=== PATIENT | female | born 1930 | race Caucasian/White ===

== ENCOUNTER 2017-01-08 20:56 | Inpatient (IN) | payer MEDICARE, OTHER ==
[~2017-01-08] VITALS: Ht 165.1 cm; Wt 55.3 kg
[~2017-01-08 20:56] MED LIST: ACETAMINOPHEN1 EACH PO; ADVIL200 M1 PO; ANTACID200 MG PO; ANTI-DIARRHEA2 MG PO; ASPIRIN EC81 MG PO; BENADRYL25 MG PO; CARBIDOPA-LEVO1 EA10 PO; CARBIDOPA-LEVO1 EAC1 PO; CEPHALEXIN500 MG PO; CRANBERRY300 MG PO; CRANBERRY500 M1 PO; CYCLOBENZAPRINE10 MG PO; DAILY VALUE1 EACH PO; DAILY VITAMIN1 EAC2 PO; EAR DROPS15 ML AU; FERROUS SULFAT325 MG PO; FLEET ENEMA133 ML PR; IBUPROFEN800 MG PO; LIDOCAINE HCL30 ML TOP; MAG-AL LIQUID30 ML PO; MAPAP500 M1 PO; MI ACID SUSPEN355 ML PO; MIRALAX17 GM PO; NORCO 5-325 TA1 EACH PO; OMEPRAZOLE20 MG PO; PROMETHAZINE HC25 M1 PO; SENNA8.6 MG PO; SINEMET 25-1001 EACH PO; TRAMADOL HCL50 MG PO; TYLENOL PM EX-1 EACH PO; VITAMIN D31000 UNI1 PO; ZOFRAN4 MG PO
[2017-01-08] MEDS ORDERED: MEDI-DERM-L CR120 ML TOP (21:15)
[2017-01-08] MEDS ORDERED: MULTIVITAM9 MG/15 M1 PO (21:16)
--- NOTE | 2017-01-08 23:09 | EKG ---
[facility] [address] [facility] [place] [address] Signed Poor data quality, interpretation may be adversely affected Normal sinus rhythm Anterior infarct , age undetermined Abnormal ECG When compared with ECG of 04-JUL-2016 19:17, Anterior infarct is now present Non-specific change in ST segment in Anterior leads Confirmed by KATI FRANCOIS MD ([id number]) on 01/08/2017 11:09:20 PM Electronically Signed By: KATI FRANCOIS MD 01/08/17 2309 PATIENT NAME: ASHU ALONSO Electrocardiogram DATE OF : 32 PHYSICIAN: KATI FRANCOIS MD REPORT #: [id number] REPORT IS CONFIDENTIAL AND NOT TO BE RELEASED WITHOUT AUTHORIZATION
--- NOTE | 2017-01-09 01:24 | NUR ---
IN TO CHECK ON PT, PT SLEEPING IN CHAIR. RR EVEN AND UNLABORED. NO APPARENT DISTRESS NOTED. IVF INFUSING. CALL LIGHT IN REACH.
--- NOTE | 2017-01-09 02:20 | NUR ---
IN TO CHECK ON PT, PT IN BED. APPEARS TO BE SLEEPING. RR EVEN AND UNLABORED. CALL LIGHT IN REACH.
--- NOTE | 2017-01-09 04:01 | NUR ---
IN TO CHECK ON PT, PT APPEARS TO BE SLEEPING. RR EVEN AND UNLABORED. NO APPARENT DISTRESS NOTED. CALL LIGHT IN REACH.
--- NOTE | 2017-01-09 05:54 | NUR ---
PT ADMITED TO FLOOR AT 0035 FROM ER. PER ER NOTES PT IS BEDBOUND WITH THE EXCEPTION OF SHORT TRANSFERS. I & D OF AREA UNDER THE R BREAST DONE IN ER. DRSG C/D/I. REDNESS OF THE R LE NOTED. PT HAS GENERALIZED RASH ON ARMS AND TRUNK. SL EXCEPT FOR IV ABX. 20G NOTED IN THE R AND L WRIST. BP ELEVATED AND PULSE ELEVATED. PT IS ON RA.
--- NOTE | 2017-01-09 06:55 | NUR ---
BEDSIDE REPORT RECEIVED FROM PATRICK PATEL. PT AWAKE IN BED, TALKING. PT HAS RASH OVER MAJORITY OF BODY. SKIN GROSSLY INTACT OTHER THAN ABCESS ON BREAST, DRESSING HAS SMALL AMT OF DRIED SEROUS DRAINAGE. PT HAS CALL LIGHT, WILL CONTINUE TO MONITOR.
--- NOTE | 2017-01-09 08:25 | NUR ---
DR. FRANCOIS IN PT'S ROOM FOR ASSESSMENT. ORDERED CULTURE FOR ABSESS ON BREAST, CHANGED DRESSING, SWABBED ABSESS FOR CULTURE. CULTURE SENT TO LAB. PT ALERT AND ORIENTED X 3. PT STATES HARD OF HEARING. RASH IS COVERING MAJORITY OF BODY. SKIN IS GROSSLY INTACT. RN MELANIEENE WITH PT ASSISTING WITH EATING BREAKFAST.
--- NOTE | 2017-01-09 10:05 | NUR ---
PT MORNING ASSESSMENT COMPLETE. PT ALERT, ORIENTED X 3. PT STATING SOME PAIN IS PRESENT IN RIGHT LEG. LOWER LEG IS RED FROM CELLULITIS. PT HAS RASH COVERING BODY. IV SITES PATENT, FLUSH WELL, VANCOMYCIN INFUSING IN LEFT FOREARM. PT DENIES NAUSEA. NO DRAINAGE NOTED THROUGH GAUZE SINCE DRESSING CHANGE. AWILDA ISSA AND PATRICK COLLIER TO SHOWER PT THIS MORNING. WILL CONTINUE TO MONITOR.
--- NOTE | 2017-01-09 10:35 | NUR ---
PHONE CALL FROM PT'S SON ROBYN. UPDATED ON PT STATUS, PLAN OF CARE. SON SAID TO CALL IF ANY CHANGES, PHONE NUMBER ON PT'S BOARD.
--- NOTE | 2017-01-09 10:59 | NUR ---
KANA GAVE PATIENT SHOWER. NOW SITTING UP IN CHAIR. BED LINENS CHANGED.
--- NOTE | 2017-01-09 11:40 | NUR ---
PATIENT WAS ASSISTED TO SHOWER CHAIR. TENA AND THIS RN SHOWERED PATIENT. HYDROCORTISONE CREAM APPIED TO PATIENT BODY PER DR FRANCOIS ORDER. PATIENT ASSISTED BACK TO CHAIR, RESTING A THIS TIME. WARM BLANKET PROVIDED.
--- NOTE | 2017-01-09 12:33 | NUR ---
DR. KATZ IN PT'S ROOM FOR CONSULT, ASSESSED ABCESS ON RIGHT BREAST. STATING HARD LUMP FELT, MAY NEED ADDITIONAL DRAINAGE. PT UP IN CHAIR, CHAIR ALARM IN PLACE, NO ADDITIONAL REQUESTS AT THIS TIME. CALL LIGHT IN REACH. WILL CONTINUE TO MONITOR.
--- NOTE | 2017-01-09 12:58 | NUR ---
PATIENT ASSISTED TO BEDSIDE COMMODE WITH 2 PERS. PATIENT VOIDED. ASSISTED BACK TO CHAIR. PATIENT HAD NO REQUEST AT THIS TIME.
--- NOTE | 2017-01-09 13:05 | NUR ---
HEATING PAD APPLIED TO PT RIGHT BREAST PER MD REQUEST. PT UP IN CHAIR, CHAIR ALARM IN PLACE. PT GIVEN CHOCOLATE ENSURE TO DRINK. NO ADDITIONAL REQUESTS AT THIS TIME. WILL CONTINUE TO MONITOR. CALL LIGHT IS IN REACH, EDUCATION PROVIDED.
--- NOTE | 2017-01-09 14:40 | NUR ---
PT AFTERNOON ASSESSMENT COMPLETE. HYDROCORTISONE APPLIED ALL OVER PT BODY, PUSTULE NOTICED ON LEFT INNER ARM. PT STATES THAT RASH IS ITCHY. PT COMPLAINS OF PAIN WITH TOUCH OF RIGHT LEG. BOWEL TONES ACTIVE X 4. PT DENIES NAUSEA. ASSISTED PT TO EAT SOUP AND CRACKERS. CALL LIGHT IN REACH, WILL CONTINUE TO MONITOR PT. CHAIR ALARM IS IN PLACE.
[2017-01-09] MEDS ORDERED: CYCLOBENZAPRINE10 MG PO (15:03)
--- NOTE | 2017-01-09 15:04 | NUR ---
CHECKOUT SUPERVISOR NOW PRESENT IN PT ROOM.
[2017-01-09] MEDS ORDERED: VITAMIN D31000 UNI1 PO (15:14)
[2017-01-09] MEDS ORDERED: IBUPROFEN800 MG PO (15:15)
[2017-01-09] MEDS ORDERED: ACETAMINOPHEN1 EACH PO (15:16)
[2017-01-09] MEDS ORDERED: MIRALAX17 GM PO (15:17)
[2017-01-09] MEDS ORDERED: TRIAMCINOLONE A15 G1 TOP (15:18)
[2017-01-09] MEDS ORDERED: MAPAP500 M1 PO (15:19)
[2017-01-09] MEDS ORDERED: MAALOX ADVANCE355 ML PO (15:23)
[2017-01-09] MEDS ORDERED: LOPERAMIDE2 M1 PO (15:24)
[2017-01-09] MEDS ORDERED: PROMETHAZINE HC25 M1 PO (15:25)
[2017-01-09] MEDS ORDERED: CALAMINE180 ML TOP (15:25)
--- NOTE | 2017-01-09 15:26 | NUR ---
Medications reconciled by pharmacist using MARS from facility and patient interview
--- NOTE | 2017-01-09 15:59 | NUR ---
PATIENT REPORTED PAIN ON THE RIGHT BREAST AND RIGHT LEG. TYLENOL GIVEN. PATIENT RESTING IN THE CHAIR. RT WAS CALLED TO EVALUATE PATIENT BREATHING, BECAUSE PATIENT HAS SOME WHEEZING ON INSP AND EXP.
--- NOTE | 2017-01-09 16:34 | NUR ---
PATIENT ASSISTED TO BEDSIDE COMMODE TO VOID, THEN ASSISTED TO BED WITH 2 PERS. WARM PACK ON RIGHT BREAST AND WARM BLANKET PROVIDED. RESTING IN BED AT THIS TIME.
--- NOTE | 2017-01-09 17:00 | NUR ---
PT RESTING IN BED, STATING SHE'S COLD, BROUGHT PT WARM BLANKET. PT ALSO REQUESTING ROOT BEER. ASSISTED PT TO CHOOSE DINNER, ORDERED DINNER FOR PT. REPOSITIONED PT IN BED. CALL LIGHT GIVEN TO PT. WILL CONTINUE TO MONITOR.
--- NOTE | 2017-01-09 18:07 | NUR ---
ASSISTED PT WITH MEAL, FED PT DINNER. PT ATE 50% OF DINNER. ASSISTED PT TO BLOW NOSE. PT STATING RIGHT LEG IS HURTING. EXAMINED LEG, LEG IS MORE RED THAN PREVIOUSLY IN SHIFT. WILL CONTINUE TO MONITOR. ADDITIONAL HYDROCORTIZONE APPLIED.
--- NOTE | 2017-01-09 18:38 | NUR ---
PHONED DR. FRANCOIS REGARDING PT PAIN IN RIGHT LEG. VERBAL ORDER FOR 400 MG IBUPROFEN Q 6HR PRN PAIN. READ BACK.
--- NOTE | 2017-01-09 18:42 | NUR ---
PT COMPLAINED OF PAIN IN RIGHT LEG THROUGHOUT SHIFT, ITCHING RASH. HYDROCORTIZONE APPLIED X 2, PT HAD SHOWER THIS MORNING. PT UP TO COMMODE WITH 2PA WITH SOME INCONTINENCE IN ATTENDS. PT RECEIVED TYLENOL X1 AND IBUPROFEN X1 THIS SHIFT FOR PAIN. PT ASSISTED TO REPOSITION AND EAT THROUGHOUT SHIFT.
--- NOTE | 2017-01-09 19:09 | NUR ---
CALL MADE TO DR FRANCOIS TO UPDATE HIM ON PATIENT VITAL SIGNS (BP 164/81 AND MAP 93, TEMP 99.3-- RR 28 AND O2 SAT 98% ON RA) PATIENT WAS COMPLAINING OF PAIN IN THE RIGHT LEG AND RIGHT BREAST. PATIENT WAS MEDICATED WITH IBUPROFEN. DR FRANCOIS STATED TO KEEP MONITOR PATIENT. REPORT WILL BE GIVEN TO GEOLOGY PROFESSOR NURSE. PATIENT RESTING BED AT THIS TIME.
--- NOTE | 2017-01-09 19:50 | NUR ---
RECIEVED REPORT FROM DAY SHIFT NURSE. PT RESTING IN BED. RLE ELEVATED ON PILLOW. HYDRATION OFFERED. PT DENIES NEEDS. CALL PATEL IN REACH.
--- NOTE | 2017-01-09 20:41 | NUR ---
PT REPOSITIONED TO R SIDE. CHECKED FOR EPISODE OF INCONT., FOUND DRY. HYDROCORTISONE CREAM APPLIED TO RASH ON BUE, ABD, BACK, AND BLE. ASSISTED PT WITH MOUTH CARE. WARM PACK APPLIED TO R BREAST. DRESSING HAS DIME SIZE AMOUNT OF YELLOW DRAINAGE. AREA APPEARS RED WITH SMALL SLIT WHERE SITE WAS DRAINED. RLE ELEVATED ON 2 PILLOWS. NO C/O PAIN AT THIS TIME. PALPABLE PEDAL PULSES. PT ALERT AND ORIENTED X3. PT DENIES FURTHER NEEDS, CALL LIGHT IN REACH.
--- NOTE | 2017-01-09 22:40 | NUR ---
PT SLEEPING. CALL PATEL IN REACH.
--- NOTE | 2017-01-09 23:59 | NUR ---
REPOSITIONED PT ON L SIDE FROM SUPINE. RLE ELEVATED ON 2 PILLOWS. CHECKED FOR EPISODE OF INCONT., FOUND DRY. CALL PATEL IN REACH.
--- NOTE | 2017-01-10 00:01 | NUR ---
PAYROLL AND BENEFITS MANAGER REPOSITIONED PT AND CHANGED BRIEF AROUND 0.
--- NOTE | 2017-01-10 02:46 | NUR ---
PT UP TO BSC WITH 2 PERSON ASSIST. VOIDED. BACK TO BED. REPOSITIONED ON L SIDE. NO CHANGE FROM PREVIOUS ASSESSMENT. RLE ELEVATED ON 2 PILLOWS. WARM PACK APPLIED TO R BREAST. PT DENIES FURTHER NEEDS. CALL PATEL IN REACH.
--- NOTE | 2017-01-10 02:48 | NUR ---
NO C/O PAIN IN RLE EXCEPT WITH REPOSITIONING ON PILLOWS. LEG IS SENSITIVE TO TOUCH. PT HAVING NO ISSUES SLEEPING.
--- NOTE | 2017-01-10 04:34 | NUR ---
PT HAD UNEVENTFUL NIGHT. SLEPT MOST OF THE NIGHT. RLE ELEVATED ON 2 PILLOWS ALL NIGHT. UP TO BSC X1 LAST NIGHT, ALSO INCONT. VS STABLE. PT ALERT AND ORIENTED X3. PT REFUSED TYLENOL. STATES PAIN IS "NOT AT THAT LEVEL YET." NO ACUTE CHANGES.
--- NOTE | 2017-01-10 05:13 | NUR ---
REPOSITIONED PT TO R SIDE. CHECKED FOR EPISODE OF INCONT., FOUND DRY. TOILETING OFFERED. PT STATES HER PAIN IS BETTER. STATES, "I MUST BE GETTING BETTER, I DIDNT SCREAM WHEN YOU TOUCHED MY LEG." PT STATES SHE HAS NO PAIN IN HER R BREAST. RLE ELEVATED ON 2 PILLOWS, REDNESS HAS DIMINISHED. CALL PATEL IN REACH.
--- NOTE | 2017-01-10 07:15 | NUR ---
BEDSIDE REPORT RECEIVED FROM PATRICK VAUGHN. PT SLEEPING IN BED, VISBLY BREATHING, WILL CONTINUE TO MONITOR.
--- NOTE | 2017-01-10 08:38 | NUR ---
PT MORNING ASSESSMENT COMPLETE. PT STATING 6/10 PAIN IN RIGHT LEG, LEG IS RED, EDEMETOUS. ADMINISTERED 400 MG IBUPROFEN. CRACKLES NOTED IN LUNG BASES BILATERALLY. HYDROCORTISONE APPLIED TO RASH ALL OVER BODY. PT GIVEN FRESH ICE WATER, WARM BLANKET. IV VANCOMYCIN INFUSING. BOTH IV SITES PATENT, FLUSH WELL. CALL LIGHT WITH PT, WILL CONTINUE TO MONITOR. CHAIR ALARM IS IN PLACE.
--- NOTE | 2017-01-10 10:05 | NUR ---
SALINE LOCKED PT'S IV SITE, LINE PULLS BACK BLOOD WELL AND FLUSHES. ELEVATED LEG ON ANOTHER PILLOW, ASSISTED PT TO REPOSITION. PT HAS NO ADDITIONAL REQUESTS, CHAIR ALARM SET. CALL LIGHT IN REACH.
--- NOTE | 2017-01-10 10:22 | NUR ---
DR. FRANCOIS IN TO SEE PT. PT UP IN CHAIR, LEGS ELEVATED. CALL LIGHT IN REACH.
--- NOTE | 2017-01-10 11:16 | NUR ---
PT STATING SHE HAD SHARP PAIN IN RIGHT BREAST, AND RIGHT LEG IS PAINFUL, 5/10. ADMINISTERED ACETAMINOPHEN 500 MG PRN. PT HAS NO ADDITIONAL REQUESTS, CALL LIGHT IN REACH. LEGS ARE ELEVATED ON 3 PILLOWS IN CHAIR.
--- NOTE | 2017-01-10 11:45 | NUR ---
PATIENT IN CHAIR FOR LUNCH
--- NOTE | 2017-01-10 12:18 | NUR ---
Patient up sitting in chair, fed her lunch. She ate about 60 percent of it. And drank all of her cranberry juice. In good spirits, although she still is painful in her abdomen.
--- NOTE | 2017-01-10 13:40 | CONS ---
[facility] [address], [place] [address] Signed DATE OF CONSULTATION: 01/09/17 CONSULTING PHYSICIAN: Lorraine Katz M.D. REQUESTING PHYSICIAN: Dr. Lemus. PROBLEM: Right breast abscess, possible incomplete drainage. HISTORY OF PRESENT ILLNESS This 86-year-old white woman is known to me since 1993. She has had various tissues over time including arteriovenous malformation causing chronic anemia and other problems. She now resides in an assisted living facility. She was noted to have pain in the right leg and was admitted by Dr. Lemus with findings of cellulitis. Additionally, she had a mass of the right breast that looked inflamed and was incised and drained in the emergency room setting delivering purulent material. This was considered a right breast abscess. It is unclear when her last imaging study of the breast was. About 5 mL of purulent material was noted upon drainage. She has been admitted by Dr. Lemus and was placed on intravenous antibiotic Vancomycin for her right lower extremity cellulitis and bilateral pedal edema. Coverage of her right breast abscess is likely given the antibiotic choice He does have rather numerous allergies which include Streptomycin, Penicillins, latex as well as other things including pain medications of Demerol, Codeine, Propoxyphene, and OxyContin. She is afflicted significantly by Parkinson's disease. She was previously very active running the [employer] in the [facility], but obviously is very debilitated since prior to 2013 where she was admitted by Dr. Lemus for failure to thrive at that time. REVIEW OF SYSTEMS She denies any real pain of her breast or the leg at this time. She has no abdominal pain. She does recount episode of drainage of the left breast in some way at the assisted living facility. PHYSICAL EXAMINATION GENERAL: An extremely frail and fragile woman who has an impressive Parkinson's-like face and a tremor consistent with Parkinson's as well. HEENT: Trachea is midline. CHEST: She has no respiratory distress. HEART: Regular. SKIN: Various excoriations and bland seborrheic changes of her torso. The right christ ast shows the mass approximately 5 cm in size with an incision in it draining some purulent Electronically Signed By: LORRAINE KATZ MD 01/10/17 1340 PATIENT NAME: ASHU ALONSO CONSULTATION DATE OF : 32 PHYSICIAN: LORRAINE KATZ MD REPORT #: [id number] REPORT IS CONFIDENTIAL AND NOT TO BE RELEASED WITHOUT AUTHORIZATION [facility] [address], [place] [address] Signed material. The mass itself is not particularly erythematous but it is firm. The left breast shows no such similar lesion. Atrophy of the breast is overall noted. EXTREMITIES: Bilateral lower extremity edema. There is mild erythema of the medial aspect of the right leg, but no sign of cellulitis at this time. LABORATORY DATA Studies show white count of 11.1 yesterday, hematocrit 35.6 with platelets 175,000. Chem profile is essentially normal. Liver enzymes normal. Urinalysis is negative. ASSESSMENT The abscess of the right breast is somewhat unusual given her advanced age and obviously not with breast feeding. The possibility of malignancy is a strong consideration; however, unlikely that maybe. I would recommend since she has eaten today that she not be taken to operation for additional drainage or exploration, but rather an ultrasound gently be performed. A fluid collection there will ultimately be drained, but if this represents a solid mass, an excisional biopsy of the entire mass including the purulent component would be. In that situation, the wound will be left open and closed by delayed technique. We will recommend warm compresses to the breast on the right side in the meantime. Continued antibiotic therapy would be appropriate. MD MIRA Teran/Werner /[id number] cc: Ericka Lemus MD Electronically Signed By: LORRAINE KATZ MD 01/10/17 1340 PATIENT NAME: ASHU ALONSO CONSULTATION DATE OF : 32 PHYSICIAN: LORRAINE KATZ MD REPORT #: [id number] REPORT IS CONFIDENTIAL AND NOT TO BE RELEASED WITHOUT AUTHORIZATION
--- NOTE | 2017-01-10 15:34 | NUR ---
PT ASSESSMENT COMPLETE. PT COMPLAINING OF ITCHING, APPLIED HYDROCORTIZONE CREAM TO RASH ALL OVER BODY. PTS LUNGS SOUND CLEAR THROUGHOUT. PT HAS ACTIVE BOWEL TONES. PT HAD BM X2 TODAY. PT DENIES PAIN. RIGHT LEG IS ELEVATED ON THREE PILLOWS. HEAT PACK APPLIED TO RIGHT BREAST ABSESS. CALL LIGHT IN REACH.
--- NOTE | 2017-01-10 17:40 | NUR ---
ASSESSED PT'S PAIN, PT STATING NO PAIN, REFUSES PRN PAIN MEDICATIONS. APPLIED COMPRESSION SOCK TO RIGHT LEG. LEG IS ELEVATED, PT IN BED. NO ADDITIONAL REQUESTS AT THIS TIME, CALL LIGHT IN REACH. AWILDA VILLARREAL IN ROOM TO COMPLETE VITALS.
--- NOTE | 2017-01-10 18:42 | NUR ---
PT RECEIVED IBUPROFEN X 1 AND TYLENOL X 1 THIS SHIFT FOR PAIN IN RIGHT LEG. PT CONTINUES TO COMPLAIN OF ITCHING AND HYDROCORTIZONE APPLIED. COMPRESSION STOCKING APPLIED TO RIGHT LEG PER DR. FRANCOIS SUGGESTION DURING ASSESSMENT. PT CONTINUES TO HAVE HOT PACK APPLIED TO BREAST ABSESS. PT HAS USED CALL LIGHT APPROPRIATELY AND USED BEDSIDE COMMODE. 2 BMS THIS SHIFT. PT'S SON WAS IN TO SEE PT.
--- NOTE | 2017-01-10 19:30 | NUR ---
RECIEVED REPORT FROM DAY SHIFT NURSE. PT RESTING IN BED. C/O PRURITIS. HYDROCORTISONE CREAM ON JUN FOR TONIGHT. PT DENIES FURTHER NEEDS. CALL PATEL IN REACH.
--- NOTE | 2017-01-10 21:09 | NUR ---
ASSESSMENT COMPLETE. OFFERS NO COMPLAINTS OF. RECOGNIZED THIS NURSE. KNOWS WHERE SHE IS AND THE DATE. PT HAS RASH, RED OVER MOST OF THE UNDERNEATH RIGHT ARM, ARM PIT, LEFT ARM, BELLY, BACK LEGS. SAYS IT ITCHES. APPLIED HYDROCORTISONE CREAM APPLIED. REDDESS RIGHT LEG NOTED ON INNER CALF, AND ANKLE. RIGHT GREAT TOE WITH NON-OPENED "CORN" UNDER NEATH. PT WALKS BY SHUFFLING HER FEET THUS RUBS THIS AREA.
--- NOTE | 2017-01-10 23:12 | NUR ---
PT WITH EVEN AND UNLABORED RESP @ 16. EYES CLOSED.
--- NOTE | 2017-01-11 01:25 | NUR ---
PT USED CALL LIGHT FOR NEED TO USE THE COMMODE. WAS INCONT SMALL AMOUNT URINE, AND VOIDED WELL. THIS IS PER HER NORMAL ROUTINE AT [facility]. BREAST WOUND SITE, RIGHT, WITHOUT DRAINAGE, FAINT PINKNESS NEAR THE OPERATIVE SITE. SCAB COVERING WOUND. GAUZE DRESSING COVERING. RIGHT LEG REMAINS UNCHANGED WITH THE MAJORITY OF REDNESS NEAR HER ANKLE AREA. COMPLAINS OF DISCOMFORT WHEN LEG LIFTED TO PUT ON PILLOW. ONCE LEGS ELEVATED ON PILLOWS, PAIN GOES AWAY. OSMIN HOSE ON RIGHT LEG CONTINUES. CALL LIGHT WITHIN REACH. REQUESTED TV BE SHUT OFF, WELL LIGHTS.
--- NOTE | 2017-01-11 03:15 | NUR ---
LAYING ON RIGHT SIDE WITH PILLOW SUPPORT. OFFERS NO COMPLAINTS. CALL LIGHT WITHIN REACH.
--- NOTE | 2017-01-11 05:11 | NUR ---
UP TO BATHROOM AFTER SHE USED CALL LIGHT, ASSIST OF TWO. USED CONTACT PRECAUTIONS RASH LOOKS SUSPICIOUS OF SCABIES. PT STATES RASH ITCHES BAD, ESPECIALLY UNDER ARM PITS. NOTES DRY SCALEYNESS BETWEEN WEBS OF FINGERS. CALL LIGHT WITHIN REACH. PT OFFERS NO COMPLAINTS. WATER GIVEN.
--- NOTE | 2017-01-11 08:02 | NUR ---
pt up in chair, c/opain leg and breast area, medicated with motrin 400mg po. Skin still red, itchy, generalized raised areas all over her body. 2 sl intact. Coop with assessment
--- NOTE | 2017-01-11 09:38 | NUR ---
Up to bsc, voided, had small bm, hydrocortisone cream applied to all over body, raised red areas. Back to bed, 2 person assist, attens in place. relief stated from pain med given earlier, further c/o pain,
--- NOTE | 2017-01-11 10:46 | NUR ---
Pt up in bed, no c/o adverse side effects to abx. Visiting with family. Comfortable
--- NOTE | 2017-01-11 12:24 | NUR ---
Pt ate 75% of lunch, is a feeder due to extreme hand tremors. Tolerated well. Pt up in chair, no c/o pain at this time. watchng tv
--- NOTE | 2017-01-11 17:17 | NUR ---
Pt up in chair most of the shift, Matthew justine R leg due to ankle edema,legs elevated. Lotion applied to all over body for red raised, scabbed over rash all over body, backs, arms, hips, legs. Hydrocortisone lotion applied twice Received Solumedrol 40mg IVx1. Received abx IV, SL intact x2. Pt ate 75% meals, reg diet, cut meats, is a feeder but is able to grab and drink juices w/o problems. Pt has unintentional hand tremors. Up to bs several times, Pt able to pivot, requires 2 person assist and FWW. Medicated with Motrin 400mg per c/o all over pain, effective. Pt cooperative with assessments and procedures. Awake all of this shift. Has visited with Family, no other requests
--- NOTE | 2017-01-11 17:56 | NUR ---
Noted pt to have increased exp wheezing left upper lobes, right clear t/o. no resp distress, Dr Williamson notified via phone about change in conditionn.o. to start neb tx albuterol q4h / prn obtained.
--- NOTE | 2017-01-11 19:45 | NUR ---
RECIEVED REPORT FROM DAY SHIFT NURSE. PT RESTING IN BED. DENIES NEEDS AT THIS TIME. CALL PATEL IN REACH.
--- NOTE | 2017-01-11 20:18 | NUR ---
PT RESTING IN BED. VS OBTAINED. REPOSITIONED TO L SIDE. CHECKED FOR EPISODE OF INCONT., FOUND DRY. APPLIED STEROID CREAM TO RASH. ENCOURAGED PT TO USE CALL LIGHT WHEN SHE BECOMES ITCHY SO I MAY APPLY REGULAR LOTION TO KEEP SKIN MOIST. LUNGS CLEAR, HR REG. RLE RED AND WARM, ELEVATED ON 2 PILLOWS. PEDAL PULSES STRONG AND PALPABLE. PT DENIES PAIN. DRESSING TO R BREAST C/D/I. TOILETING AND HYDRATION OFFERED. PT DENIES FURTHER NEEDS.
--- NOTE | 2017-01-11 22:45 | NUR ---
PT SLEEPING. CALL PATEL IN REACH.
--- NOTE | 2017-01-11 23:45 | NUR ---
PT UP TO BSC WITH 2 PERSON ASSIST. VOIDED. BACK TO BED. REPOSITIONED TO R SIDE, PT STATES SHE IS NOT COMFORTABLE ON THAT SIDE. PT SUPINE WITH BLE ELEVATED ON 2 PILLOWS. CALL PATEL IN REACH.
--- NOTE | 2017-01-12 00:11 | NUR ---
PT USED CALL LIGHT AND ASKED FOR SOMETHING TO RELIEVE HER ITCHING. APPLIED REGULAR LOTION. PT STATES SHE THINKS IT IS STARTING TO HELP THE ITCH. WATER PITCHER FILLED. HYDRATION OFFERED. PT DENIES FURTHER NEEDS. CALL PATEL IN REACH.
--- NOTE | 2017-01-12 01:18 | NUR ---
PT AWAKE IN BED. RATES HER "DISCOMFORT" IN HER RLE 09/13. PT REQUESTS MOTRIN. SNACK DELIVERED. HYDRATION OFFERED. REFILLED WATER PITCHER. PT DENIES FURTHER NEEDS.
--- NOTE | 2017-01-12 03:30 | NUR ---
PT AWAKE IN BED. REQUESTED LOTION TO BE PUT ON HER ARMS FOR ITCHING. APPLIED LOTION. SHE IMMEDIATELY SAID "IT FELT BETTER." REPOSITIONED TO R SIDE. RLE ELEVATED ON 2 PILLOWS. OSMIN STOCKING APPLIED TO RLE. HYDRATION AND TOIETING OFFERED. PT DENIES FURTHER NEEDS. CALL PATEL IN REACH. NO C/O PAIN.
--- NOTE | 2017-01-12 05:48 | NUR ---
PT DID NOT SLEEP VERY WELL TONIGHT. LOTION APPLIED MULTIPLE TIMES FOR ITCHING. PT UP TO BSC A FEW TIMES, NO INCONTINENCE. PT STATES PAIN IN RLE IS BETTER. NO PAIN IN R BREAST. MOTRIN GIVEN X1 LAST NIGHT FOR MINIMAL PAIN IN R LEG, PT ALSO STATES MORTIN HELPS WITH HER TREMORS. OSMIN STOCKING ON RLE. 2 IVS IN HANDS BOTH PATENT. PT ALERT AND ORIENTED. NO ACUTE CHANGES.
--- NOTE | 2017-01-12 07:25 | NUR ---
PT IN BED RESTING QUIETLY. RECIEVED BEDSIDE REPORT FROM PATRICK VAUGHN.
--- NOTE | 2017-01-12 08:15 | NUR ---
PT UP ON BEDSIDE COMMODE. TRANSFERED WITH ASSISTANCE FROM 2 CNAs USING FWW.
--- NOTE | 2017-01-12 08:50 | NUR ---
PT TRANSFERED FROM BEDSIDE COMMODE TO RECLINER, IS CURRENTLY EATING BREAKFAST WITH ASSISTANCE FROM [employer]. PT ALERT, ORIENTED X 3.
--- NOTE | 2017-01-12 08:55 | NUR ---
ASSISTED PATIENT WITH BREAKFAST. HANDS AND FACE WASHED. FRESH ICE WATER GIVEN. CALL BUTTON IN REACH. CHAIR ALARM ON. NO OTHER NEEDS AT THIS TIME. TALKED TO PATIENT ABOUT A SHOWER TODAY.
--- NOTE | 2017-01-12 10:18 | NUR ---
Vancomycin trough level = subtherapeutic at 9.2. Reload with 1250mg x 1 then give 1g IV q 18 hrs, next dose due 01/13/17 at 0300
--- NOTE | 2017-01-12 10:22 | NUR ---
PATIENT SITTING UP IN CHAIR WITH FEET ELEVATED. PATIENT STATES THAT SHE HAD A LADY COME IN AND TELL HER THAT SHE WASN'T GOING TO BEABLE TO GO BACK TO WERE SHE IS LIVING. PATIENT TEARY EYED. ASSITED WITH ORAL CARE. TALKED TO PATIENT ABOUT SHOWERING LATER TODAY. CALL BUTTON IN REACH. NO OTHER NEEDS AT THIS TIME.
--- NOTE | 2017-01-12 10:30 | NUR ---
SPOKE WITH PATIENT IN ROOM. PATIENT MARY'S IGLOO BUT ORIENTED. DISCUSSED POSSIBLE DICHARGE NEEDS. PT TEARY WITH TALK REGARDING SNF. PATIENT WANTS TO RETURN HOME TO [facility]. EXPLAINED THAT WILL BE OUR FIRST CHOICE. PATIENT STATES SHE NORMALLY USES A [facility] TO AMBULATE ONCE A DAY, OTHERWISE IS WHEELCHAIR BOUND.
--- NOTE | 2017-01-12 10:32 | NUR ---
PT IN BED, DENIES NEEDS. IVF INFUSING. PT REMAINS NPO.
--- NOTE | 2017-01-12 10:45 | NUR ---
SPOKE WITH HIEN, WEB DAT[employer] DEVELOPER OF [facility]. SHE STATES PATIENT IS OK TO RETURN THERE. SHE STATES PATIENT IS BASELINE IN HER NEEDS AT THIS POINT. SHE STATES THEY HAVE NO TRANSPORTATION OPTIONS TODAY AND PATIENT WILL NEED A RIDE OUT THERE. DISCUSSED WITH STAFF TO CALL PATIENTS SON AND SEE IF HE CAN TAKE HER, IF NOT TO CALL [facility] FOR CARE RIDE TO FACILITY. ALSO TOLD THEM TO CALL THE FACILITY ON ETA AND GIVE REPORT.
[2017-01-12] MEDS ORDERED: LEVOFLOXACIN500 MG PO (10:59)
--- NOTE | 2017-01-12 11:00 | NUR ---
PT SITTING UP IN RECLINER. GAVE PT LEVAQUIN 500 MG PO ORDERED. PT ABLE TO HOLD CUP, GIVE SELF DRINK OF WATER DESPITE HER TREMORS. PT ALERT, ORIENTED X 3.
--- NOTE | 2017-01-12 11:10 | NUR ---
PATIENT UP TO BSC AND BACK TO CHAIR. CHAIR ALARM ON. CALL BUTTON IN REACH. NO OTHER NEEDS AT THIS TIME. LUNCH ORDERED.
--- NOTE | 2017-01-12 13:00 | NUR ---
PATIENTS SON IS NOT ABLE TO TRANSPORT PATIENT TO FACILITY. STAFF WILL CALL A [facility] FOR TRANSPORT.
--- NOTE | 2017-01-12 13:00 | NUR ---
BED BATH COMPLETE. SEBASTIAN CARE DONE. PATIENT BEING DISCHARGED.
--- NOTE | 2017-01-12 13:12 | NUR ---
PT DISCHARGED TO HOME, [facility]IA [facility]. DISCHARGED AT 1310. DISCHARGE INSTRUCTIONS GIVEN TO PT. QUESTIONS ASKED AND ANSWERED, PT VERBALIZED UNDERSTANDING. PT'S BP WAS 144/82 JUST PRIOR TO DISCHARGE. NOTIFIED DR. ALVARADO, WHO STATED THAT SHE WAS OK WITH THIS.
== END 2017-01-12 13:10 | disposition home or self-care (01) | DRG 600 ==
LOC: ED 20:56 → MS 20:57
PROVIDERS: ADMIT Internal Medicine
PROC: 0H95XZX Drainage of Chest Skin, External Approach, Diagnostic (ICD-10-PCS; principal; 2017-01-08)
DX: N61.1 Abscess of the breast and nipple (principal); L03.115 Cellulitis of right lower limb; B95.8 Unspecified staphylococcus as the cause of diseases classified elsewhere; L30.8 Other specified dermatitis; G20 Parkinson's disease; Z66 Do not resuscitate; I10 Essential (primary) hypertension; K21.9 Gastro-esophageal reflux disease without esophagitis; I25.10 Atherosclerotic heart disease of native coronary artery without angina pectoris
CPT/HCPCS: 36415; 71010; 73610; 76642; 80048; 80053; 80202; 81001; 83605; 85025; 87040; 87070; 87075; 87077; 87186; 87205; 93005; 93010; 93971; 94760; 97110; 97161; 97530; J1650; J2920; J3370; J7060

== ENCOUNTER 2017-01-15 05:26 | Emergency (ER) | payer MEDICARE, OTHER ==
[~2017-01-15] VITALS: Ht 165.1 cm; Wt 55.3 kg
[~2017-01-15 05:26] MED LIST changes: +CALAMINE180 ML TOP; +LEVOFLOXACIN500 MG PO; +LOPERAMIDE2 M1 PO; +MAALOX ADVANCE355 ML PO; +MEDI-DERM-L CR120 ML TOP; +MULTIVITAM9 MG/15 M1 PO; +TRIAMCINOLONE A15 G1 TOP
== END 2017-01-15 06:29 | disposition home or self-care (01) ==
LOC: ED 05:26
DX: L03.115 Cellulitis of right lower limb (principal); I10 Essential (primary) hypertension; K21.9 Gastro-esophageal reflux disease without esophagitis; Z90.49 Acquired absence of other specified parts of digestive tract; Z90.710 Acquired absence of both cervix and uterus; Z88.8 Allergy status to other drugs, medicaments and biological substances; Z88.5 Allergy status to narcotic agent; Z88.0 Allergy status to penicillin; Z88.1 Allergy status to other antibiotic agents; Z79.899 Other long term (current) drug therapy; Z91.040 Latex allergy status
CPT/HCPCS: 99283

== ENCOUNTER 2017-04-01 16:51 | Emergency (ER) | payer MEDICARE, OTHER ==
[~2017-04-01] VITALS: Ht 165.1 cm; Wt 47.6 kg
[2017-04-01] MEDS ORDERED: CLEARLAX119 GM PO (17:19)
[2017-04-01] MEDS ORDERED: ENSURE LIQUID237 ML PO (17:20)
[2017-04-01] MEDS ORDERED: HYDROXYZINE HCL25 MG PO (17:25)
[2017-04-01] MEDS ORDERED: PROMETHAZINE HC25 M1 PO (17:26)
[2017-04-01] MEDS ORDERED: ZOFRAN ODT4 MG PO (17:26)
== END 2017-04-01 17:58 | disposition home or self-care (01) ==
LOC: ED 16:51
DX: R05 Cough (principal); I10 Essential (primary) hypertension; K21.9 Gastro-esophageal reflux disease without esophagitis; G20 Parkinson's disease; Z88.5 Allergy status to narcotic agent; Z88.1 Allergy status to other antibiotic agents; Z88.8 Allergy status to other drugs, medicaments and biological substances; Z91.040 Latex allergy status; Z88.0 Allergy status to penicillin; Z79.82 Long term (current) use of aspirin; Z79.899 Other long term (current) drug therapy
CPT/HCPCS: 71010; 80048; 85025; 99283

== ENCOUNTER 2017-05-05 15:59 | Emergency (ER) | payer MEDICARE, OTHER ==
[~2017-05-05] VITALS: Ht 165.1 cm; Wt 47.6 kg
[~2017-05-05 15:59] MED LIST changes: +CLEARLAX119 GM PO; +ENSURE LIQUID237 ML PO; +HYDROXYZINE HCL25 MG PO; +ZOFRAN ODT4 MG PO
[2017-05-05] MEDS ORDERED: ZOFRAN4 MG PO (19:59)
== END 2017-05-05 20:29 | disposition home or self-care (01) ==
LOC: ED 15:59
DX: J11.1 Influenza due to unidentified influenza virus with other respiratory manifestations (principal); I10 Essential (primary) hypertension; Z88.5 Allergy status to narcotic agent; Z88.8 Allergy status to other drugs, medicaments and biological substances; Z88.1 Allergy status to other antibiotic agents; Z88.0 Allergy status to penicillin; Z91.040 Latex allergy status; Z79.82 Long term (current) use of aspirin; Z79.899 Other long term (current) drug therapy
CPT/HCPCS: 71045; 87502; 99284

== ENCOUNTER 2017-07-04 14:23 | Emergency (ER) | payer MEDICARE, OTHER ==
[~2017-07-04] VITALS: Ht 165.1 cm; Wt 47.6 kg
== END 2017-07-04 17:28 | disposition home or self-care (01) ==
LOC: ED 14:23
PROC: 0HQKXZZ Repair Right Lower Leg Skin, External Approach (ICD-10-PCS; principal; 2017-07-04)
DX: S81.811A Laceration without foreign body, right lower leg, initial encounter (principal); I10 Essential (primary) hypertension; K21.9 Gastro-esophageal reflux disease without esophagitis; D64.9 Anemia, unspecified; Z88.5 Allergy status to narcotic agent; Z88.8 Allergy status to other drugs, medicaments and biological substances; Z88.0 Allergy status to penicillin; Z91.040 Latex allergy status; Z79.899 Other long term (current) drug therapy; Z79.82 Long term (current) use of aspirin; W54.1XXA Struck by dog, initial encounter
CPT/HCPCS: 12002; 99282

== ENCOUNTER 2018-04-09 17:04 | Emergency (ER) | payer MEDICARE, OTHER ==
[~2018-04-09] VITALS: Ht 165.1 cm; Wt 47.6 kg
--- OUTSIDE RECORDS SUMMARY | 2018-04-09 17:10 | XMS ---
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 Care History Medical/Surgical 05/21/2017 [facility] Care Recommendation: This patient has had 5 or more Emergency Department visits in the last 12 months. Patient requires education on the scope and purpose of the ED as an acute care provider not a Primary Care Provider and should not be utilized for chronic conditions. If patient returns to ED please contact Community Health WorkerYulissa at [phone]. These are guidelines and the provider should exercise clinical judgment when providing care. E.D. VISIT COUNT (12 MO[address] 4 [facility] TOTAL 4 NOTE: Visits indicate total known visits. ED/UCC VISIT TRACKING (12 MO.) 04/09/2018 17:05 [facility] [place] TYPE: Emergency COMPLAINT: - URINE PROBLEM 03/11/2018 15:10 [facility] [place] TYPE: Emergency COMPLAINT: - SOB DIAGNOSES: - Latex allergy status - Other intermediate (current) drug therapy - Allergy status to other antibiotic agents status - Cough - Allergy status to penicillin - Allergy status to other drugs, medicaments and biological substances status - Anemia, unspecified - Acute upper respiratory infection, unspecified - Essential (primary) hypertension - Personal history of urinary (tract) infections - Chronic ischemic heart disease, unspecified - Allergy status to narcotic agent status - Parkinson's disease - computer terminal operator (current) use of aspirin - Gastro-esophageal reflux disease without esophagitis 07/04/2017 14:24 [facility] [place] TYPE: Emergency COMPLAINT: - SKIN TEAR R CHESTER/INJURY DIAGNOSES: - Allergy status to other drugs, medicaments and biological substances status - correction (current) use of aspirin - Laceration without foreign body, right lower leg, initial encounter - Allergy status to penicillin - Essential (primary) hypertension - Anemia, unspecified - Gastro-esophageal reflux disease without esophagitis - Allergy status to narcotic agent status - Latex allergy status - Struck by dog, initial encounter - Other intermediate (current) drug therapy 05/05/2017 15:59 [facility] [place] TYPE: Emergency COMPLAINT: - FLU SYMPTOMS/SOB DIAGNOSES: - Other ad terminal makeup operator (current) drug therapy - computer terminal operator (current) use of aspirin - Cough - Allergy status to other antibiotic agents status - Allergy status to penicillin - Allergy status to other drugs, medicaments and biological substances status - Influenza due to unidentified influenza virus with other respiratory manifestations - Allergy status to narcotic agent status - Essential (primary) hypertension - Latex allergy status INPATIENT VISIT TRACKING (12 MO.) No inpatient visits to display in this time frame [email or web address]
--- NOTE | 2018-04-10 21:57 | CONS ---
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 HISTORY OF PRESENT ILLNESS: This 87-year-old white woman is well-known to me from the past. She is now very debilitated with Parkinson disease and now is at [facility]. She was brought to the emergency room by personnel at the senior living for concern about possible urinary tract infection. Her evaluation in the emergency room showed urinalysis was normal without sign of urinary tract infection. She had 5 white cells per high-power field. Her Chem profile that was obtained was essentially normal with a creatinine of 0.68. Liver enzymes normal, lipase 44. CBC showing white count of 5.2 with hematocrit 38.8 and platelet count of 127,000. The patient has had no nausea or vomiting and was able to eat a full breakfast today. She did not desire to eat much at lunch and this caused concern among her caretakers at the senior living. Evaluation by Dr. Brumfield included abdominopelvic CT scan which showed essentially all the stomach in the posterior mediastinum and generous amount of transverse colon as well. Concern was raised for that entity and that is the basis of consultation at this time. The patient is lucid and although slow in her speech and tremulous due to her Parkinson disease, complains of no pain whatsoever. She says no distress particularly. She is accompanied by family members. her son and daughter in law. REVIEW OF SYSTEMS: She denies any dysphagia. She has had no hematemesis or nausea or vomiting of any sort. She does not have abdominal pain she says. PHYSICAL EXAMINATION: GENERAL: A frail elderly white woman who is lucid, but slow in speech. She has a profound tremor of her upper extremities related to Parkinson disease. CHEST: Shows no tachypnea. Heart rate is about 127. ABDOMEN: Abdominal palpation reveals no tenderness whatsoever. There is no ascites. EXT: no edema and non tender. CT scan was reviewed in detail, confirming findings as I have described. ASSESSMENT AND PLAN: Electronically Signed By: LORRAINE KATZ MD 04/10/18 2157 PATIENT NAME: ASHU ALONSO CONSULTATION DATE OF : 32 REPORT #: [id number] PHYSICIAN: LORRAINE KATZ MD PCP: BUZZ CASTILLO MD REPORT IS CONFIDENTIAL AND NOT TO BE RELEASED WITHOUT AUTHORIZATION [address] [address] Signed I reviewed her prior imaging studies which have confirmed the current findings of the CT scan many times previously. Her primary physician is Dr. Buzz Castillo and I suspect given her overall debility that a decision had been made in the past against operative intervention of the problem of paraesophageal hernia. Indeed, I reviewed an operative report of upper endoscopy that I had performed in 2008 that showed a paraesophageal hernia then. I explained to the family and to the patient with illustrations, the anatomy that is present. Certainly, if she were to be showing signs of gastric ischemia, colonic obstruction, or have nausea, vomiting, or inability to tolerate oral intake, consideration would strongly be made for repair of this type 4 paraesophageal hernia. On the other hand, her frailty and impressively debilitated medical state would mitigate against aggressive operative intervention electively, particularly as she is asymptomatic at this time and with very significant comorbidities making her an unlikely operative candidate except in extreme circumstances. I believe she is safe to return to the senior living environment, but if she were to have inability to tolerate oral intake or develop abdominal pain or anything to suggest vascular compromise of the stomach or colon, further consideration of operative intervention would be made. Essentially, the findings at hand have been longstanding and my review of record shows as far back as 10 years ago in 2008, upper endoscopy had been performed by me confirming paraesophageal even at that time. Her family is disinclined to aggressive operative intervention nor is a patient too interested in it as well unless of dire necessity. We will review this with Dr. Brumfield. I will discuss with Dr. Castillo, her primary physician next week as well. Lorraine Katz MD /MODL /[id number] cc: Dee Brumfield MD Electronically Signed By: LORRAINE KATZ MD 04/10/18 2157 PATIENT NAME: ASHU ALONSO CONSULTATION DATE OF : 31 REPORT #: [id number] PHYSICIAN: LORRAINE KATZ MD PCP: BUZZ CASTILLO MD REPORT IS CONFIDENTIAL AND NOT TO BE RELEASED WITHOUT AUTHORIZATION [address] [address] Signed Buzz Castillo MD Copies: DEE BRUMFIELD MD, RUSSELL BARR MD ~ Electronically Signed By: LORRAINE KATZ MD 04/10/18 2157 PATIENT NAME: ASHU ALONSO CONSULTATION DATE OF : 31 REPORT #: [id number] PHYSICIAN: LORRAINE KATZ MD PCP: BUZZ CASTILLO MD REPORT IS CONFIDENTIAL AND NOT TO BE RELEASED WITHOUT AUTHORIZATION
== END 2018-04-09 23:37 | disposition home or self-care (01) ==
LOC: ED 17:04
PROC: 0T9B70Z Drainage of Bladder with Drainage Device, Via Natural or Artificial Opening (ICD-10-PCS; principal; 2018-04-09)
DX: R10.9 Unspecified abdominal pain (principal); G20 Parkinson's disease; D64.9 Anemia, unspecified; I10 Essential (primary) hypertension; K21.9 Gastro-esophageal reflux disease without esophagitis; I25.9 Chronic ischemic heart disease, unspecified; Z87.440 Personal history of urinary (tract) infections; Z90.49 Acquired absence of other specified parts of digestive tract; Z90.710 Acquired absence of both cervix and uterus; Z88.5 Allergy status to narcotic agent; Z88.0 Allergy status to penicillin; Z88.1 Allergy status to other antibiotic agents; Z91.040 Latex allergy status; Z88.8 Allergy status to other drugs, medicaments and biological substances; Z79.899 Other long term (current) drug therapy; Z79.82 Long term (current) use of aspirin
CPT/HCPCS: 51701; 74176; 80053; 81001; 83690; 85025; 99284-25

== ENCOUNTER 2018-05-05 11:25 | Emergency (ER) | payer MEDICARE, OTHER ==
[~2018-05-05] VITALS: Ht 165.1 cm; Wt 47.6 kg
--- OUTSIDE RECORDS SUMMARY | 2018-05-05 11:28 | XMS ---
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 Care History Medical/Surgical 05/21/2017 [facility] Care Recommendation: This patient has had 5 or more Emergency Department visits in the last 12 months. Patient requires education on the scope and purpose of the ED as an acute care provider not a Primary Care Provider and should not be utilized for chronic conditions. If patient returns to ED please contact Community Health WorkerYulissa at [phone]. These are guidelines and the provider should exercise clinical judgment when providing care. E.D. VISIT COUNT (12 MO.) 5 [facility] TOTAL 5 NOTE: Visits indicate total known visits. ED/UCC VISIT TRACKING (12 MO.) 05/05/2018 11:25 [facility] [place] TYPE: Emergency COMPLAINT: - URINE PROBLEM 04/09/2018 17:05 [facility] [place] TYPE: Emergency COMPLAINT: - ABD PAIN DIAGNOSES: - Allergy status to other antibiotic agents status - Latex allergy status - Acquired absence of other specified parts of digestive tract - Allergy status to penicillin - Chronic ischemic heart disease, unspecified - Allergy status to narcotic agent status - Parkinson's disease - Other fpc (current) drug therapy - Personal history of urinary (tract) infections - Acquired absence of both cervix and uterus - Essential (primary) hypertension - Anemia, unspecified - Allergy status to other drugs, medicaments and biological substances status - Unspecified abdominal pain - Gastro-esophageal reflux disease without esophagitis - emt intermediate (current) use of aspirin 03/11/2018 15:10 [facility] [place] TYPE: Emergency COMPLAINT: - SOB DIAGNOSES: - Latex allergy status - Other director long term care (current) drug therapy - Allergy status to [...] narcotic agent status - Parkinson's disease - shelter (current) use of aspirin - Gastro-esophageal reflux disease without esophagitis 07/04/2017 14:24 [facility] [place] TYPE: Emergency COMPLAINT: - SKIN TEAR R CHESTER/INJURY DIAGNOSES: - Allergy status to other drugs, medicaments and biological substances status - shelter (current) use of aspirin - Laceration without foreign body, right lower leg, initial encounter - Allergy status to penicillin - Essential (primary) hypertension - Anemia, unspecified - Gastro-esophageal reflux disease without esophagitis - Allergy status to narcotic agent status - Latex allergy status - Struck by dog, initial encounter - Other director long term care (current) drug therapy 05/05/2017 15:[address] [facility] [place] TYPE: Emergency COMPLAINT: - FLU SYMPTOMS/SOB DIAGNOSES: - Other director long term care (current) drug therapy - emt intermediate (current) use of aspirin - Cough - [...] visits to display in this time frame [email or web address]
[2018-05-05] MEDS ORDERED: KEFLEX500 MG PO (13:51)
== END 2018-05-05 14:06 | disposition home or self-care (01) ==
LOC: ED 11:25
DX: R30.0 Dysuria (principal); G20 Parkinson's disease; D64.9 Anemia, unspecified; I10 Essential (primary) hypertension; K21.9 Gastro-esophageal reflux disease without esophagitis; D57.1 Sickle-cell disease without crisis; Z87.440 Personal history of urinary (tract) infections; Z90.710 Acquired absence of both cervix and uterus; Z90.89 Acquired absence of other organs; Z88.5 Allergy status to narcotic agent; Z88.1 Allergy status to other antibiotic agents; Z88.0 Allergy status to penicillin; Z88.8 Allergy status to other drugs, medicaments and biological substances; Z91.040 Latex allergy status; Z79.82 Long term (current) use of aspirin; Z79.899 Other long term (current) drug therapy
CPT/HCPCS: 81001; 87077; 87088; 87186; 99283

== ENCOUNTER 2018-06-24 17:59 | Inpatient (IN) | payer MEDICARE, OTHER ==
[~2018-06-24] VITALS: Ht 165.1 cm; Wt 45.5 kg
[~2018-06-24 17:59] MED LIST changes: +KEFLEX500 MG PO; -LIDOCAINE HCL30 ML TOP; +LIDOCAINE35.44 GM TOP; -ZOFRAN ODT4 MG PO
--- OUTSIDE RECORDS SUMMARY | 2018-06-24 18:02 | XMS ---
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 Care History Medical/Surgical 05/21/2017 [facility] Care Recommendation: This patient has had 5 or more Emergency Department visits in the last 12 months. Patient requires education on the scope and purpose of the ED as an acute care provider not a Primary Care Provider and should not be utilized for chronic conditions. If patient returns to ED please contact Community Health WorkerYulissa at [phone]. These are guidelines and the provider should exercise clinical judgment when providing care. E.D. VISIT COUNT (12 MO.) 5 [facility] TOTAL 5 NOTE: Visits indicate total known visits. 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 - Personal history of urinary (tract) infections - Allergy status to other drugs, medicaments and biological substances status - Allergy status to penicillin - Dysuria - Parkinson's disease - Essential (primary) hypertension - Latex allergy status - skilled nursing (current) use of aspirin 04/09/2018 17:05 [facility] [place] TYPE: Emergency COMPLAINT: - ABD PAIN DIAGNOSES: - Allergy status to other antibiotic agents status - Latex allergy status - Acquired absence of other specified parts of digestive tract - Allergy status to penicillin - Chronic ischemic heart disease, unspecified - Allergy status to narcotic agent status - Parkinson's disease - Other terminal gauger supervisor (current) drug therapy - Personal history of urinary (tract) infections - Acquired absence of both cervix and uterus - Essential (primary) hypertension - Anemia, unspecified - Allergy status to other drugs, medicaments and biological substances status - Unspecified abdominal pain - Gastro-esophageal reflux disease without esophagitis - long term care pharmacist (current) use of aspirin 03/11/2018 15:10 [facility] [place] TYPE: Emergency COMPLAINT: - SOB DIAGNOSES: - Latex allergy status - Other shelter (current) drug therapy - Allergy status to [...] narcotic agent status - Parkinson's disease - long term care pharmacist (current) use of aspirin - Gastro-esophageal reflux disease without esophagitis 07/04/2017 14:[address] [facility] [place] TYPE: Emergency COMPLAINT: - SKIN TEAR R CHESTER/INJURY DIAGNOSES: - Allergy status to other drugs, medicaments and biological substances status - long term care pharmacist (current) use of aspirin - Laceration without foreign body, right lower leg, initial encounter - Allergy status to penicillin - Essential (primary) hypertension - Anemia, unspecified - Gastro-esophageal reflux disease without esophagitis - Allergy status to narcotic agent status - Latex allergy status - Struck by dog, initial encounter - Other shelter (current) drug therapy INPATIENT VISIT TRACKING (12 MO.) No inpatient visits to display in this time frame [email or web address]
--- NOTE | 2018-06-24 23:10 | NUR ---
PERFORMING PATIENT'S PHYSICAL ASSESSMENT.
[2018-06-24] MEDS ORDERED: ONDANSETRON ODT8 MG PO (23:29)
[2018-06-24] MEDS ORDERED: DULCOLAX10 MG PR (23:33)
[2018-06-24] MEDS ORDERED: PRIMIDONE50 MG PO (23:34)
[2018-06-24] MEDS ORDERED: CALAMINE LOTIO177 M1 TOP (23:36)
[2018-06-24] MEDS ORDERED: ANTI-ITCH CREME28 GM TOP (23:39)
[2018-06-24] MEDS ORDERED: ECONAZOLE NITRA15 GM TOP (23:40)
--- NOTE | 2018-06-24 23:41 | NUR ---
PT COOPERATIVE WITH ADMIT QUESTIONS, [place]. INVOLUNTARY TREMORS OF UPPER EXTREMITIES PRESENT. O2 IN PLACE. REPOSITIONED, WARM BLANKET GIVEN, CALL LIGHT AT HANDS REACH, NO MOSAICIST
--- NOTE | 2018-06-24 23:44 | NUR ---
PHYSICAL ASSESSMENT COMPLETE CAN BE WITH PATIENTS CURRENT ABILITY TO HEAR AND RESPOND TO QUESTIONS.
--- NOTE | 2018-06-25 01:42 | NUR ---
CHANGED PATIENTS IV FLUIDS TO MAINTANENCE AT 85MLS/HR D5LR AND WIPED THE PATIENT'S NOSE FOR HER AT HER REQUEST. CALL LIGHT IN REACH.
--- NOTE | 2018-06-25 03:29 | NUR ---
PATIENT IS FEELING A LITTLE BETTER, AND SHE HAS BEEN RESTING QUIETLY, IS WARM ENOUGH, AND IV IS INFUSING WNL.
--- NOTE | 2018-06-25 06:46 | NUR ---
PATIENT HAS HAD ONE VOID OF INCONTINENCE SINCE ARRIVAL AND OTHERWISE HAS JUST RESTED QUIETLY THROUGH THE NIGHT AFTER BEING CLEANED UP.
--- NOTE | 2018-06-25 09:39 | NUR ---
PT ASSISTED TO CHAIR FOR BREAKFAST. PT IS ON 2L OXYGEN, RESP NON LABORED. PT HAS NOTABLE PRODUCTIVE COUGHT, SPUTUM SENT PER DOC ORDER. PT REPORTS GENERALIZED PAIN, TYLENOL ADMIN PER PT REQUEST. PT HAS NO NEEDS AT THIS TIME. BRIEF INTACT. CALL LIGHT WITHIN REACH.
--- NOTE | 2018-06-25 12:37 | NUR ---
PT LAYING IN BED, GAZING OUT INTO THE SIMS. I SAID ESMER, PT CONTINUED TO STARE, TO RESPONSE. WILL FOLLOW NEEDED
--- NOTE | 2018-06-25 12:49 | NUR ---
MED REC COMPLETE
--- NOTE | 2018-06-25 15:04 | NUR ---
PATIENT HAS TREMORS FROM PARKINSON'S DISEASE AND NEEDS SOMEONE TO FEED HER. PER NURSING, SHE ATE ALMOST ALL OF HER GRILLED CHEESE SANDWICH AND CHICKEN NOODLE SOUP FOR LUNCH. PATIENT SPEAKS SLOWLY. HER BMI IS 16.6. PATIENT NEEDING ASSISTANCE GETTING COMFORTABLE. NURSE IN TO HELP. CONTINUE REGULAR, SOFT DIET. SUPPLEMENT WITH ENSURE IF LESS THAN 50% OF A MEAL CONSUMED. WILL REMAIN AVAILABLE IF NEEDED.
--- NOTE | 2018-06-25 18:26 | EKG ---
[facility] [address] [facility] [place] [address] Signed Poor data quality Sinus tachycardia Abnormal ECG When compared with ECG of 08-JAN-2017 21:22, Atrial flutter has replaced Sinus rhythm Criteria for Anterior infarct are no longer present T wave inversion now evident in Inferior leads T wave inversion now evident in Lateral leads Confirmed by KATI FRANCOIS MD ([id number]) on 06/25/2018 6:26:03 PM Electronically Signed By: KATI FRANCOIS MD 06/25/18 1826 PATIENT NAME: ASHU ALONSO Electrocardiogram DATE OF : 32 PHYSICIAN: KATI FRANCOIS MD REPORT #: [id number] REPORT IS CONFIDENTIAL AND NOT TO BE RELEASED WITHOUT AUTHORIZATION
--- NOTE | 2018-06-25 18:29 | NUR ---
A&OX3. 2L OXYGEN NC. AJAY LIFT TO CHAIR. WEAKNESS. D5 LR @50ML/HR. IV ABX. ASSIST WITH FEEDING. INCONTINENT.
--- NOTE | 2018-06-25 19:00 | NUR ---
SHIFT REPORT RECEIVED FROM [facility] PATRICK KIM. PT AWAKE AND RESTING IN BED. PT VERY [place], DENIES NEEDS. APPEARS COMFORTABLE. CALL LIGHT IN REACH. IV FLUIDS INFUSING PER MD ORDERS, SITE WNL.
--- NOTE | 2018-06-25 20:30 | NUR ---
ASSESSMENT COMPLETE AND MEDICATIONS GIVEN (SEE EMAR). IV ABX INFUSING PER MD ORDERS, SITE PATENT AND BLOOD RETURN NOTED. PT A/OX3, DENIES PAIN EXCEPT WITH COUGH. DENIES NEED FOR PAIN MEDICATION. PT ON 2LNC, DENIES SOB. PT REPOSTIONED BY THIS RN IN BED. NO FURTHER NEEDS, CALL LIGHT IN REACH.
--- NOTE | 2018-06-25 20:54 | NUR ---
VITALS DONE AND CHARTED. BEDSIDE TABLE AND CALL LIGHT IN REACH.
--- NOTE | 2018-06-25 21:48 | NUR ---
IN ROOM TO ADMINISTER IV ABX. PT DENIES NEEDS AT THIS TIME. CALL LIGHT IS WITHIN REACH.
--- NOTE | 2018-06-25 22:20 | NUR ---
PT RESTING IN BED, NO SIGNS OF DISTRESS NOTED. APPEARS COMFORTABLE. 2LNC IN PLACE, CALL LIGHT IN REACH.
--- NOTE | 2018-06-25 22:34 | NUR ---
PT CALLED WANTING A WARM BLANKET. SHE SAID SHE IS READY FOR BED, TURNED LIGHT AND TV OFF. SHE DENIES FURTHER NEEDS AND CALL LIGHT IS WITHIN REACH.
--- NOTE | 2018-06-25 23:30 | NUR ---
DISCUSSED PT'S LOVENOX ADMINISTRATION WITH VICKEY SANTIAGO. PT ARRIVED TO THE UNIT 06/24 NEAR MIDNIGHT AND RECEIVED LOVENOX AT APROX 0030. LOVENOX SCHEDULED X1 Q24HRS AT 2100. 2100 SCHEDULED LOVENOX GIVEN AT THIS TIME TO [facility]UNDLE CARE WELL TO SLOWLY HAVE LOVENOX ADMINISTRATION CLOSER TO SCHEDULED TIME. RN DELIVERYPATRICK SANTIAGO IN AGREEMENT. PT REPOSITIONED IN BED WITH HELP FROM July. PT DENIES NEEDS. MAINTAINANCE FLUIDS INFUSING PER MD ORDERS, SITE WNL. CALL LIGHT IN REACH.
--- NOTE | 2018-06-25 23:37 | NUR ---
WITH THE HELP OF PATRICK EDWARDS WE CHANGED PT INCONTINENT OF URINE. BEDSIDE TABLE AND CALL LIGHT WITHIN REACH.
--- NOTE | 2018-06-26 00:59 | NUR ---
THIS RN IN ROOM AFTER HEARING PT YELLING OUT FOR HELP. PT STATING SHE NEEDS TO SPIT SOMETHING OUT. MILD INTERMITTENT COUGHING NOTED, SCANT CLEAR SPIT NOTED IN EMESIS BAG. HOB ELEVATED. PT DENIES FURTHER NEEDS. CALL LIGHT IN REACH.
--- NOTE | 2018-06-26 02:03 | NUR ---
IN ROOM TO ASSIST PT. HELD EMESIS BAG WHILE PT SPIT INTO BAG. CLEAR SPIT NOTED. ARM COVERED W/ BLANKET PER PT REQUEST. CALL LIGHT IN REACH.
--- NOTE | 2018-06-26 02:50 | NUR ---
VITALS AND I&OS DONE AND CHARTED. CHANGED PT'S ATTEND INCONTINENT OF URINE. GAVE HER A DRINK OF WATER. BEDSIDE TABLE AND CALL LIGHT IN REACH.
--- NOTE | 2018-06-26 02:51 | NUR ---
NOTIFIED PATRICK EDWARDS OF TEMP AND HIGH BLOOD PRESSURE.
--- NOTE | 2018-06-26 03:14 | NUR ---
ASSESSMENT COMPLETE. PT A/OX3, RATES PAIN 10/13, PRN TYLENOL GIVEN. IV FLUIDS INFUSING PER MD ORDERS, SITE WNL. PT REPOSITIONED BY THIS RN. BLE ELEVATED W/ PILLOW. HOB ELEVATED. PT DENIES FURTHER NEEDS, CALL LIGHT IN REACH.
--- NOTE | 2018-06-26 05:04 | NUR ---
PT A/OX4, PAIN CONTROLLED WITH PRN PAIN MEDICATIONS. SBA W/ AMBULATION. PT ON REGULAR DIET, NO NAUSEA, BOWEL TONES ACTIVE. SCHEDULED IV ABX, OTHERWISE SALINE LOCKED. PT USES CALL LIGHT APPROPERIATELY.
--- NOTE | 2018-06-26 06:01 | NUR ---
VITALS DONE AND CHARTED.
--- NOTE | 2018-06-26 06:57 | NUR ---
changed pt's attend. emptied garbages. bedside table and call light in reach.
--- NOTE | 2018-06-26 07:37 | NUR ---
PT SLEEPING AT THIS TIME, RESP EVEN AND NON LABORED. PT IS ON 2L OXYGEN PER NC. PT APPEARS COMFORTABLE, FLACC 0/10. PERSONAL SUPPLIES AND CALL LIGHT WITHIN REACH. NO NEEDS.
--- NOTE | 2018-06-26 08:00 | NUR ---
PATIENT RESTING IN BED. DEPEND CHANGED. PATIENT TRANSFERRED TO CHAIR USING A AJAY. TWO PERSON ASSISTING. PATIENT'S BREAKFAST ORDERED. CALL LIGHT WITHIN REACH. NO OTHER NEEDS AT THIS TIME
--- NOTE | 2018-06-26 12:46 | NUR ---
PATIENT RESTING IN BED. DEPEND CHANGED. ONE PERSON ASSISTING. CALL LIGHT WITHIN REACH. NO OTHER NEEDS AT THIS TIME
--- NOTE | 2018-06-26 13:17 | NUR ---
PATIENT RESTING IN BED. VITAL SIGNS AND I&O DONE. CALL LIGHT WITHIN REACH. NO OTHER NEEDS AT THIS TIME
--- NOTE | 2018-06-26 15:19 | NUR ---
PATIENT RESTING IN BED. PATIENT'S DINNER ORDERED. CALL LIGHT WITHIN REACH. NO OTHER NEEDS AT THIS TIME
--- NOTE | 2018-06-26 16:28 | NUR ---
PATIENT RESTING IN BED. PATIENT'S DEPEND CHANGED. TWO PERSON ASSISTING. CALL LIGHT WITHIN REACH. NO OTHER NEEDS AT THIS TIME
--- NOTE | 2018-06-26 16:48 | NUR ---
PATIENT SITTING UP IN BED. VITAL SIGNS AND I&O DONE. CALL LIGHT WITHIN REACH. NO OTHER NEEDS AT THIS TIME
--- NOTE | 2018-06-26 19:00 | NUR ---
SHIFT REPORT RECEIVED FROM [facility] PATRICK KIM AT BEDSIDE. PT AWAKE AND RESTING IN BED W/ 2LNC IN PLACE. PT DENIES NEEDS, CALL LIGHT IN REACH. BOARD UPDATED.
--- NOTE | 2018-06-26 19:15 | NUR ---
PT REQUESTED ROOT BEER SODA. I GOT HER SOME IN A CUP WITH ICE AND HELD IT FOR HER WHILE SHE DRANK SOME. BEDSIDE TABLE AND CALL LIGHT IN REACH. I INFORMED HER IF SHE WANTED MORE TO DRINK THEN TO CALL AND SOMEONE WOULD BE GLAD TO HELP HER.
--- NOTE | 2018-06-26 20:40 | NUR ---
ASSESSMENT COMPLETE, SCHEDULED MEDICATIONS GIVEN (SEE EMAR). IV ABX INFUSING (SEE EMAR), IV SITE WNL. PT RESTING IN BED, 2LNC IN PLACE, NO RESPIRATORY DISTRESS NOTED. PT REPOSITIONED WITH HELP FROM AWILDA JULY. WET ATTENDS, PT CHANGED. EMESIS HELD FOR PT PT SPIT CLEAR SPIT INTO EMESIS BAG. PT DENIES FURTHER NEEDS, CALL LIGHT IN REACH.
--- NOTE | 2018-06-26 20:40 | NUR ---
VITALS AND I&OS DONE AND CHARTED. WITH THE HELP OF PATRICK EDWARDS WE CHNAGED PT'S ATTEND INCONTINENT OF URINE. BEDSIDE TABLE AND CALL LIGHT IN REACH. SHE NEEDS NOTHING MORE AT THIS TIME.
--- NOTE | 2018-06-26 21:29 | NUR ---
PT'S IV WAS BEEPING. ADJUSTED HER PILLOW AND PT DENIES FURTHER NEEDS. CALL LIGHT IS WITHIN REACH.
--- NOTE | 2018-06-26 21:45 | NUR ---
SCHEDULED IV ABX INFUSING (SEE EMAR), IV SITE WNL. PT ASSISTED AGAIN WITH SPITTING INTO EMESIS BAG. HOB ELEVATED, PT RESTING COMFORTABLY, NO DISTRESS NOTED. PT DENIES ADDITIONAL NEEDS. CALL LIGHT IN REACH.
--- NOTE | 2018-06-26 23:29 | NUR ---
PT ASSISTED WITH COVERING SELF WITH BLANKET, TELEVISION TURNED OFF PER PT REQUEST. NO FURTHER NEEDS. CALL LIGHT IN REACH.
--- NOTE | 2018-06-27 01:45 | NUR ---
ASSESSMENT COMPLETE, NO NEW CONCERNS. 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 PT REPOSITIONED IN BED. HOB ELEVATED, EMESIS BAG PROVIDED FOR SPIT. COUGHING NOTED WITH ASSESSMENT. COURSENESS NOTED IN BUL, CLEAR THROUGHOUT POSTERIOR. PT ON 2LNC, O2 SAT WNL. PT DENIES FURTHER NEEDS, CALL LIGHT IN REACH.
--- NOTE | 2018-06-27 01:50 | NUR ---
VITALS AND I&OS DONE AND CHARTED. PT WAS TREMMERING A LOT WHEN I WAS TRYING TO GET A BLOOD PRESSURE. PATRICK EDWARDS WAS IS THE ROOM WITH HER. WE CHANGED HER ATTEND INCONTINENT OF URINE. REPOSITIONED HER TO HER LEFT SIDE. BEDSIDE TABLE AND CALL LIGHT IN REACH.
--- NOTE | 2018-06-27 03:15 | NUR ---
NOTIFIED BY AWILDA TOURE THAT PT FELT LIKE SHE WAS NOT GETTING ENOUGH AIR. THIS RN RECENTLY IN ROOM, NO DISTRESS NOTED. O2 SAT IN MID 90'S WITH 2LNC. RT NOTIFIED FOR PRN BREATHING TREATMENT.
--- NOTE | 2018-06-27 03:36 | NUR ---
THIS RN AT NURSE'S STATION WITH RT. BREATHING TREATMENT COMPLETE PER RT.
--- NOTE | 2018-06-27 04:41 | NUR ---
PT RESTING IN BED, EYES CLOSED, RR WNL. NO DISTRESS NOTED. CALL LIGHT IN REACH.
--- NOTE | 2018-06-27 05:16 | NUR ---
PT SLEPT ON AND OFF THROUGHOUT THE NIGHT. A/O, PAIN CONTROLLED WITH PRN TYLENOL. PT ON SOFT REGULAR DIET, TOLERATING WELL, NO NAUSEA. NO BM THIS SHIFT. PT INCONTINENT. FREQUENT TURNING, REDDENED COCCYX, BLANCHABLE, ALLEVYN IN PLACE. PT AJAY LIFT AT BASELINE PER SHIFT REPORT. VSS, PT ON 2LNC. PRN BREATHING TREATMENT X1 FOR WHEEZES. SCHEDULED IV ABX, IV SITE WNL. OTHERWISE SALINE LOCKED. PT DOES NOT USE CALL LIGHT, YELLS OUT FOR ASSISTANCE.
--- NOTE | 2018-06-27 08:48 | NUR ---
PATIENT RESTING IN BED, EYES CLOSED. CALL LIGHT IN REACH. RESPIRATIONS EVEN AND NONLABORED. NO OTHER NEEDS AT THIS TIME.
--- NOTE | 2018-06-27 10:46 | NUR ---
0950- PT UP TO CHAIR WITH WITH SAMPLE TAILOR AT BEDSIDE, SAMPLE TAILOR GOING TO FEED PT. 1000- SAMPLE TAILOR REPORTS PT NOT WANTING SOILD FOOD AND DRINKING JUICE PT SEEMED TO HAVE HARD TIME SWALLING. RN TO PT ROOM. PT SITTING IN CHAIR AND RESP INCREASED AND LABORED. O2 80% ON 2L VIA NC, CHECK EMBOSSER AT BEDSIDE AND RT CALLED. PT REPORTS SOB. OXY MASK PLACED AT 9L AND HR BETWEEN 115-120. PT SHACKING UPPER EXTRMITIES MORE THEN HER BASELINE. O2 SAT INCREASED TO 94% AND PT MORE PINK IN COLOR. 1010 MD FRANCOIS AT BEDSIDE AND RT. RT PLACING BREATHING TREATMENT. SUB ASSEMBLY TEAM WORKER AT BEDSIDE. ORDERS TO PLACE PT ON NPO AND START IV FLUIDS, USE SUCTION AND HAVE PT CONTINUE TO COUGH. MD ORDER TO MOVE PT ROOM CLOSER TO [facility], PLAN TO MOVE PT TO ROOM 111.
--- NOTE | 2018-06-27 11:27 | NUR ---
1115 PT IN ROOM 111, PT RESTING IN CHAIR. PT COLOR MORE PINK AND RESP RATE DECREASED TO 20 AND EVEN AND UNLABORED. PT ON 7L VIA OXY MASK. PT HANDS NOT SHAKING.
--- NOTE | 2018-06-27 12:22 | NUR ---
BEDBATH GIVEN WITH RN AND BOUFFANT CURTAIN MACHINE TENDER. PT PUT IN CLEAN GOWN AND HAIR CLEANED WITH SHOWER CAP. PT RESTING IN CHAIR.
--- NOTE | 2018-06-27 12:28 | NUR ---
Therpist and RN discussed patient status and RN determined physical therpay should be deferred today as patient is worn out from this morning and rest is prioritized at this time. Will attempt tomorrow as appropriate.
--- NOTE | 2018-06-27 14:35 | NUR ---
1400 RN TO ROOM WITH . PT REPOSTIONED ON LEFT SIDE WITH PILLOWS WHILE IN CHAIR. PT CONTINUES TO COUGH THICK GREEN SPUTUM THAT IS SUCTIONED. O2 TITRATED TO 2L. PT ASLEEP OFF AND ON. PT EDUCATION GIVEN ON COUGHING AND USING IS. PT CONTINUES TO SHAKE AND HAVE A HARD TIME GRABBING THINGS.
--- NOTE | 2018-06-27 16:04 | NUR ---
1300 TWO RNS AT BEDSIDE PT REPORTS SHE GETS OUT OF BED AT HER FACILITY WITH TWO PERSON ASSIST. TWO PERSON ASSIST ATTEMPTED WITH LIFT HELP, PT UNABLE TO HELP AT ALL. PT ON COMMODE AND REPORTS SHE IS UNABLE TO HAVE A BM, PT DENIES LIFT IS PAINFUL. PT BACK TO CHAIR AND DEPENDS CHANGED, DEPENDS VERY WET. WARM BLACKETS GIVEN AND PT REPOSITIONED IN CHAIR. CALL LIGHT IN LAP AND NC ON PT AT 2L. PT COUGHING OFF AND ON.
--- NOTE | 2018-06-27 16:43 | NUR ---
1640 REPORT TO SHELLEY RN, PER PLANT OPERATIONS MANAGER RN PT HAD BM 06/25/18 NO BOWEL MOVEMENT TODAY AND PT REPORTS SHE FEELS LIKE "SHE CAN'T GO." EVEN WHEN PT WAS ON COMMODE. DISCUSSED WITH SHELLEY NGUYEN. PT UP IN CHAIR AND ON 2L VIA NC. PT DENIES ANY OTHER CONCERNS AT THIS TIME.
--- NOTE | 2018-06-27 17:01 | NUR ---
up in chair, ice chips provided. tolerating well. coughed up some thick green sputum. interacting with me appropriately.
--- NOTE | 2018-06-27 18:04 | NUR ---
up in chair, states feeling constipated like a BM is just about to happen but won't.
--- NOTE | 2018-06-27 18:53 | NUR ---
back up to bed with ceiling lift. attends changed, suppository inserted.
--- NOTE | 2018-06-27 19:32 | NUR ---
RECIEVED REPORT FROM SHELLEY NGUYEN. PATIENT RESTING AWAKE IN BED. IV FLUIDS INFUSING PER MAR ORDER. CALL LIGHT WITHIN REACH. WHITE BOARD UPDATED. NO MORE NEEDS AT THIS TIME.
--- NOTE | 2018-06-27 20:02 | NUR ---
WITH THE HELP OF PATRICK INGRAM WE GOT PT OFF THE BEDPAN AND CLEANED UP FROM A BM. BEDSIDE TABLE AND CALL LIGHT IN REACH. SHE NEEDS NOTHING MORE AT THIS TIME.
--- NOTE | 2018-06-27 21:00 | NUR ---
CALLED DR. FRANCOIS TO INQUIRE ABOUT PATIENT'S NPO STATUS AND PO SCDEDULED MEDICATIONS. DR. FRANCOIS STATED OK TO CONTINUE WITH SCHEDULED PO MEDICATIONS AND TRY THEM WITH APPLESAUSE.
--- NOTE | 2018-06-27 22:25 | NUR ---
ASSESSMENT COMPLETE. MEDICATIONS ADMINISTERED PER JUN ORDER. PATIENT REFUSED "LEVODOPA/CARBIDOPA", EDUCATION PROVIDED TO PATIENT BY HI NGUYEN, PATIENT STILL REFUSED. PATIENT REPORTS "3/10" CHEST PAIN AND STATES "ITS NOT GOOD" AND SOME DIFFICULY BREATHING, PATIENT USED INCENTIVE SPIROMENTER AND ACAPELLA DEVICE, PATIENT DEMONSTRATED UNDERSTANDING. IV ASSESSED, WNL. PATIENT DENIES NUMBNESS AND TINGLING IN EXTREMITIES. PATIENT ABLE TO TAKE MEDICATIONS WITH APPLESAUSE WITH HEAD OF BED ELEVATED AND PATIENT REPOSITIONED, PATIENT TOLERATED WELL. PATIENT PRODUCED THICK, LIGHT GREEN SPUTUM. 2L VIA NC, NO SIGNS OF DISTRESS. ATTENDS IN PLACE. PATIENT REPORTS "7/" PAIN IN BACK, PRN PAIN MEDICATION PROVIDED. CALL LIGHT WITHIN REACH. NO MORE NEEDS AT THIS TIME.
--- NOTE | 2018-06-27 22:34 | NUR ---
ROUNDED CHARGE. DENICE NGUYEN IN THE ROOM. PATIENT DENIES ANY COMMENTS, QUESTIONS OR CONCERNS. PATIENT IS REFUSING MEDICATION AT THIS TIME. ASSISTED DENICE IN EDUCATING PATIENT ON THE IMPORTANCE OF TAKING HER MEDICATION. PATIENT CONTINUED TO DENY TO TAKE HER SINEMT. DENICE NGUYEN REMAINS ON THE ROOM.
--- NOTE | 2018-06-27 22:40 | NUR ---
NOTIFIED DR. FRANCOIS OF PATIENT'S COMPLAINTS OF CHEST PAIN THAT IS "3/10", PATIENT REPORTING DIFFICULTY BREATHING, AND PATIENT REFUSING "LEVODOPA/CARBIDOPA" AFTER PATIENT EDUCATION WAS PROVIDED. NO NEW ORDERS AT THIS TIME.
--- NOTE | 2018-06-27 22:45 | NUR ---
CALLED RESPIRATORY THERAPIST TO ASSESS PATIENT.
--- NOTE | 2018-06-27 22:55 | NUR ---
RESPIRATORY THERAPIST IN ROOM ASSESSING PATIENT.
--- NOTE | 2018-06-27 23:32 | NUR ---
HELPED PT WITH SPITTING INTO HER TISSUE. GAVE HER SOME ICE CHIPS PER HER REQUEST. BEDSIDE TABLE AND CALL LIGHT IN REACH. SHE NEEDS NOTHING MORE AT THIS TIME.
--- NOTE | 2018-06-28 00:48 | NUR ---
ROUNDED ON PATIENT RESTING IN BED WITH EYES CLOSED, RESPIRATORY RATE IS EVEN AND UNLABORED. CPOX, WNL. CALL LIGHT WITHIN REACH.
--- NOTE | 2018-06-28 02:24 | NUR ---
ROUNDED ON PATIENT RESTING IN BED, EYES CLOSED, RESPIRATORY RATE IS EVEN AND UNLABORED. CPOX, WNL. IV FLUID BAG REPLACED PER JUN ORDER. CALL LIGHT WITHIN REACH.
--- NOTE | 2018-06-28 03:33 | NUR ---
ROUNDED ON PATIENT TO REPOSITION PATIENT. WARM BLANKET PROVIDED PER PATIENT REPORT OF BEING COLD. HEAD OF BED ELEVATED GREATER THAN 30 DEGREES. CALL LIGHT WITHIN REACH. NO MORE NEEDS AT THIS TIME. PATIENT DROWSY AND RESTING ON AND OFF DURING INTERACTION.
--- NOTE | 2018-06-28 04:40 | NUR ---
ASSESSMENT COMPLETE. PATIENT REPORTS CHEST PAIN, PT DID NOT STATE RATING, DR. FRANCOIS AWARE OF PATIENT'S REPORT OF THIS FROM EARLIER NOTIFICATION EARLIER IN SHIFT. PATIENT REPORTS DIFFICULTY BREATHING STATES "IT'S IN MY UPPER CHEST", ENCOURAGED PATIENT TO COUGH AND DEEP BREATH, SHALLOW COUGHS PRODUCED, SUCTION PROVIDED TO REMOVE MUCUS PRODUCED, MUCUS LIGHT YELLOW IN COLOR. REPOSITIONED PATIENT'S PILLOW PER PATIENT REQUEST. NO SIGN OF DISTRESS. CPOX, WNL. CALL LIGHT WITHIN REACH. NO MORE NEEDS AT THIS TIME.
--- NOTE | 2018-06-28 06:21 | NUR ---
VITALS AND I&OS DONE AND CHARTED. WITH THE HELP OF AWILDA ARENAS WE CHANGED PT'S ATTEND INCONTINENT OF URINE. BEDSIDE TABLE AND CALL LIGHT IN REACH. ICE CHIPS GIVEN.
--- NOTE | 2018-06-28 08:00 | NUR ---
PT SITTING UP IN BED. ORIENTED TO ALL BUT PLACE. DENIES PAIN AT THIS TIME. MADE MULTIPLE SMALL REQUESTS FOR ADJUSTMENT OF PILLOWS, BLANKETS, BELONGINGS ETC. SUCTIONS MOUTH PER REQUEST FROM PT. COURSE LUNG SOUNDS NOTED, PRODUCTIVE COUGH WITH THICK GREEN SPUTUM. PT NPO UNTIL ST EVAL TODAY. IV INFUSING WNL, DRESSING CDI. PT REPOSITIONED IN BED. CALL LIGHT WITHIN REACH. CPOX ON, SATTING 96% ON 2LNC.
--- NOTE | 2018-06-28 10:06 | NUR ---
PATIENT IN BED RESTING. DEPENDS CHANGED. CALL LIGHT IN REACH. NO FURTHER NEEDS AT THIS TIME.
--- NOTE | 2018-06-28 10:35 | NUR ---
IN PT ROOM TO ASSESS PT AND DISCUSS PLAN OF CARE. HE ALSO ASSISTED [employer] HEAD FORMER PT TO [facility] 2 PERSON PIVOT. SPEECH THERAPY IN ROOM AT THIS TIME TO ASSESS PT SWALLOW EVAL.
--- NOTE | 2018-06-28 10:45 | NUR ---
PT SITTING UP IN RECLINER. 2PA PIVOT TRANSFER PER SUSY CHARGE NURSE. ADJUSTED PT BLANKET AND SUCTIONED PER REQUEST. OTHERWISE DENIES NEEDS OR CONCERNS. CALL LIGHT WITHIN REACH.
--- NOTE | 2018-06-28 13:11 | NUR ---
PT SLEEPING SOUNDLY IN RECLINER. RESP EVEN AND UNLABORED. SATTING 96% ON 2L NC.
--- NOTE | 2018-06-28 13:50 | NUR ---
I FIRST CALLED ANTONY AT [phone] I WAS TOLD THIS NUMBER WAS NO LONGER IN SERVICE. I THEN CALLED [phone], MESSAGES AREN'T SET UP. I THEN TRIED CALLING HER SON ROBYN @ [phone], I EXPLAINED WHO I WAS AND WHY I WAS CALLING, HIS RESPONSE WAS WELL YOU NEED TO TALK TO ANTONY, I TOLD HIM THAT I HAD ATTEMPTED TO AT 2 DIFFERENT #'S, ONE NOT WORKING THE OTHER # YOU CAN'T LEAVE A MESSAGE, SO I ASKED IF HE HAD DIFFERENT #'S. HE DID GIVE ME A DIFFERENT #[phone], I CALLED IT AND THE MESSAGE SAID IT WAS ANTONY, SO I LEFT A MESSAGE. ROBYN SAID HE CANNOT MAKE DECISIONS ABOUT WHERE HIS MOTHER IS TO GO THAT IS FOR ANTONY HE SAYS.
--- NOTE | 2018-06-28 14:34 | NUR ---
PATIENT IN CHAIR. [id number] CHANGED. SEBASTIAN CARE DONE. CALL LIGHT IN REACH. NO FURTHER NEEDS AT THIS TIME.
--- NOTE | 2018-06-28 15:41 | NUR ---
PT SITTING UP IN RECLINER. REQUESTED ORAL SUCTION AND WARM BLANKET. DONE AT THIS TIME. SATTING 98% ON 2L NC. CALL LIGHT WITHIN REACH.
--- NOTE | 2018-06-28 18:13 | NUR ---
PATIENT PIVIT TRANSFER FROM CHAIR TO BED, 2PA. DEPENDS CHANGED. PILLOW UNDER LEFT SIDE. FRESH WATER GIVEN. CALL LIGHT IN REACH. NO FURTHER NEEDS AT THIS TIME.
--- NOTE | 2018-06-28 18:20 | NUR ---
PT SLEEPING SOUNDLY IN BED. EYES CLOSED, RESP EVEN AND UNLABORED. SATTING 98% ON 2L NC WHILE ASLEEP. BED ALARM ON. CALL LIGHT WITHIN REACH.
--- NOTE | 2018-06-28 19:39 | NUR ---
RECIEVED REPORT FROM KAITLIN NGUYEN. PATIENT RESTING IN BED WITH EYES CLOSED, RESPIRATORY RATE IS EVEN AND UNLABORED. 2L VIA NC, CPOX, WNL. WHITE BOARD UPDATED. IV FLUIDS INFUSING PER MAR ORDER. CALL LIGHT WITHIN REACH.
--- NOTE | 2018-06-28 21:45 | NUR ---
ASSESSMENT COMPLETE. MEDICATION ADMINISTERED PER MAR ORDER. PATIENT DENIES CHEST PAIN, SOB, OR DIFFICULTY BREATHING. ACTIVE BT. 2 L VIA NC, NO SIGN OF DISTRESS. ENCOURAGED INCENTIVE SPIROMETER. PATIENT EXHIBITED SHALLOW COUGH. CALL LIGHT WITHIN REACH. NO MORE NEEDS AT THIS TIME.
--- NOTE | 2018-06-29 00:08 | NUR ---
ROUNDED ON PATIENT, O2 SATS ON CPOX 87% ON 2L VIA NC. ENCOURAGED PATIENT TO COUGH AND DEEP BREATH, SHALLOW BREATHS PRODUCED. SUCTIONED PATIENT'S MOUTH. AFTER INTERVENTIONS O2 SATS INCREASED TO 90-91%. PATIENT REPORTS FEELING BETTER AFTER INTERVENTIONS. CALL LIGHT WITHIN REACH. NO MORE NEEDS AT THIS TIME.
--- NOTE | 2018-06-29 00:35 | NUR ---
ROUNDED ON PATIENT TO BLADDER SCAN. 24ML NOTED ON BLADDER SCAN. LUNG SOUNDS ASSESSED, REFER TO FOCUSED RESPIRATORY ASSESSMENT. NEW ATTENDS AND PERIPAD PLACE FOR ROUTINE ROTATION. PATIENT DENIES DIFFICULY BREATHING. CALL LIGHT WITHIN REACH.
--- NOTE | 2018-06-29 00:49 | NUR ---
NOTIFIED DR. FRANCOIS OF PATIENT'S LOW URINE OUTPUT. NO NEW ORDERS AT THIS TIME.
--- NOTE | 2018-06-29 01:55 | NUR ---
PT ASLEEP, AWAKEN BRIEFLY FOR VS, NOTED ELEVATED TEMP, DENICE NGUYEN NOTIFIED OF ELEVATED TEMP
--- NOTE | 2018-06-29 02:06 | NUR ---
ASSESSED PATIENT'S TEMPERATURE. ENCOURAGE PATIENT TO TAKE DEEP BREATHS. REMOVED EXTRA BLANKETS AND ENCOURAGE PATIENT TO USE INCENTIVE SPIROMETER. PATIENT REFUSED TO BE SUCTIONED AT THIS TIME. CALL LIGHT WITHIN REACH. NO MORE NEEDS AT THIS TIME.
--- NOTE | 2018-06-29 04:55 | NUR ---
ROUNDED ON PATIENT RESTING IN BED WITH EYES CLOSED, RESPIRATORY RATE IS EVEN AND UNLABORED. CPOX, WNL. CALL LIGHT WITHIN REACH.
--- NOTE | 2018-06-29 05:06 | NUR ---
PATIENT SLEPT WELL THROUGHOUT THE NIGHT. SUCTION PRN TO FACILITATE REMOVAL OF SPUTUM FROM MOUTH. 2L VIA NC. REPOSITION. CPOX. LOW URINE OUTPUT, DR. FRANCOIS AWARE. INCONTIENT, ATTENDS IN PLACE. PUREED DIET, THIN LIQUIDS. INCENTIVE SPIROMETER AND ACAPELLA. [place]. IV FLUIDS INFUSING PER MAR ORDER. IV ABX. PILLS WITH APPLESAUSE, PATIENT TOLERATED WELL.
--- NOTE | 2018-06-29 06:35 | NUR ---
ASSESSMENT COMPLETE, REFER TO ASSESSMENT. PATIENT DENIES PAIN, CHEST PAIN, SOB OR DIFFICULTY BREAHING. MOUTH SUCTIONED, SMALL AMOUNT OF MUCUS REMOVED. LIP BALM PROVIDED. ATTENDS CHANGE SCANT AMOUNT OF URINE NOTED IN ATTENDS. REPOSITIONED PATIENT IN BED. IV FLUIDS INFUSING PER MAR ORDER. SIPS OF WATER PROVIDED. CALL LIGHT WITHIN REACH. NO MORE NEEDS AT A TIME.
--- NOTE | 2018-06-29 07:49 | NUR ---
NOTIFIED DR. FRANCIOS OF PATIENT'S LOW URINE OUTPUT AND BLADDER SCAN OF 60ML. DR. FRANCOIS STATED HE WILL PLACE NEW ORDERS.
--- NOTE | 2018-06-29 08:15 | NUR ---
PT 2PERSON PIVOT TRANSFER TO RECLINER, KORI WELL. SATTING 96% ON 2L NC. PT REMAINS DROWSY BUT RESPONDS APPROPRIATELY. CALL LIGHT WITHIN REACH.
--- NOTE | 2018-06-29 08:15 | NUR ---
PT RESTING IN BED, DROWSY BUT EASILY AROUSABLE. RESPONDS APPROPRIATELY TO ORIENTATION QUESTIONS, ORIENTED TO ALL AT THIS TIME. DENIES PAIN OR OTHER CONCERNS. ATTENDS REMAIN DRY, DR. FRANCOIS AWARE, ORDER FOR 500ML BOLUS. SATTING 96% ON 2L NC, HR 81. OCC PRODUCTIVE COUGH NOTED. PT SUCTIONED NEEDED AND PER PT REQUEST. CALL LIGHT WITHIN REACH.
--- NOTE | 2018-06-29 08:24 | NUR ---
NOTED IV SITE LEAKING AND SKIN AROUND INSERTION SITE COOL AND PALE. IV DC'D. NEW 22G IV STARTED IN RIGHT WRIST. PT KORI WELL. IV INFUSION RESTARTED. PT SITTING UP EATING BREAKFAST WITH ASSISTANCE FROM [facility].
--- NOTE | 2018-06-29 11:30 | NUR ---
DR. FRANCOIS NOTIFIED THIS RN AFTER ROUNDING ON PT THAT SHE APPEARED LESS RESPONSIVE AND EXTREMITIES COOL. ASSESSMENT COMPLTED. PT SLIGHTLY MORE DROWSY THAN AM ASSESSMENT BUT CONT TO RESPOND APPROPIATELY TO QUESTIONS, ORIENTED TO ALL. OPENS EYES SPONTANEOUSLY. VS OBTAINED PER DR. FRANCOIS, SEE CHART. HANDS AND FEET SLIGHTLY COOL TO THE TOUCH, CAP REFILL 4 SEC. ROOM TEMP NOTED TO BE COOL. HEAT TURNED UP. CALL LIGHT WITHIN REACH.
--- NOTE | 2018-06-29 11:45 | NUR ---
VARGAS CATH PLACE PER DR. FRANCOIS, 16 LAO. PT KORI WELL. RECIEVED 125ML OF IMMEDIATE RETURN OF SIMRAN URINE. PT NOW NOTED TO BE LESS RESPONIVE. CONT TO OPEN EYES SPONTANEOUSLY BUT VERY SLOW TO RESPOND TO QUESTIONS AND AT TIME DOESNT RESPOND, JUST STARES. RECIEVED ORDER TO TRANSFER TO CCU. CHARGE NURSE AND ACADEMIC ADVISEMENT DIRECTOR AWARE.
--- NOTE | 2018-06-29 11:58 | NUR ---
CONTACTED SON ROBYN TO NOTIFY AND UPDATE ON PT CURRENT STATUS, INFECTION WORSE TODAY AND MOVED TO ROOM 128 IN CCU AT THIS TIME FOR CLOSER MONITOR.
--- NOTE | 2018-06-29 12:00 | NUR ---
PT HAS ARRIVED TO CCU INTO ROOM 128 AT 1155 VIA BED. PT ON 2 L/MIN O2 VIA NC. VSS. PT NONVERBAL/NOT ANSWERING MY QUESTIONS AT THIS TIME BUT ASKS, "WHERE AM I?" THIS RN UPDATED PT ON HER CONDITION, PLAN OF CARE AND SURROUNDINGS. WILL COMPLETED HEAD TO TOE SHORTLY ONCE PT SETTLED.
--- NOTE | 2018-06-29 12:45 | NUR ---
PT'S ASSESSMENT COMPLETED. SEE CHARTED ASSESSMENT.
--- NOTE | 2018-06-29 13:02 | NUR ---
500 ML BOLUS HAS FINISHED INFUSING AT THIS TIME; BOTH SCHED VANCO AND MEROPENEM INFUSING. PT CONTINUES TO HAVE A VERY WEAK COUGH- PRN ORAL SUCTION WITH YANKAUR CONTINUED- THICK, CLEAR SPUTUM PRODUCTION. 1300 UOP 15 ML IN THE LAST HOUR- WILL SEE WHAT THIS NEXT HOUR OUTPUT IS BEFORE NOTIFYING DR. FRANCOIS SINCE LR BOLUS IS NOW ALL IN PT'S SYSTEM.
--- NOTE | 2018-06-29 14:05 | NUR ---
PT'S CONDITION HAS WORSENED, PRESSING THE NEED FOR TRANSFER TO CCU. PATRICK PRADO REQUESTED I VISIT WITH PT'S SON ROBYN. HE HAS JUST ARRIVED AND SHE FELT IT WAS IMPORTANT TO HELP HIM THROUGH THIS MOMENT. HAD HEARTFELT DISCUSSION WITH SON, AND FEEL HE NEEDS TO VISIT WITH DR FRANCOIS WHEN AVAILABLE. HE SAID "MOM WOULD NOT WANT WIRES AND TUBES KEEPING HER ALIVE", AND EXPLAIN DNR-DNA TO SON. GAVE HIM A BLESSING, WILL FOLLOW NEEDED
--- NOTE | 2018-06-29 14:30 | NUR ---
FULL BED BATH COMPLETE. LINENS CHANGED. PT HAD EYES CLOSED AND WAS NONVERBAL THROUGHOUT THIS. VARGAS CARES. 2 ALLEYVNS ON BOTTOM; ONE APPLIED TO UPPER ALEX SPINE. SON ROBYN HAS ARRIVED AND WAS GIVEN INFORMATION ON PT'S CARE. PT REPOSITIONED TO HER RIGHT SIDE- SHE TENDS TO NATURALLY TURN TO HER LEFT. ALL EXTREMITIES ELEVATED ON PILLOWS AND HEEL PROTECTORS APPLIED. WHILE CLEANING PT'S BOTTOM SHE HAD A SMALL FORMED BM- CLEANED AND NOW DRY. Q2HR TURNS/ REPOSITIONING. CALL LIGHT WITHIN REACH. WILL CONTINUE TO MONIOR.
--- NOTE | 2018-06-29 15:40 | NUR ---
PT NONVERBAL; EYES SHUT; TACHYCARDIC; VARGAS REMAINS OLIGURIC; DR. ALVARADO HAS JUST VISITED WITH PT'S SON ROBYN.
--- NOTE | 2018-06-29 16:26 | NUR ---
PT REPOSITIONED TO HER LEFT SIDE; ALL EXTREMITIES ELEVATED; SEE CHARTED ASSESSMENT.
--- NOTE | 2018-06-29 17:15 | NUR ---
2ND PIV PLACED IN RIGHT FOREARM. PT OBTUNDED AND HAD NO REACTION TO THE NEEDLE STICK. SOFTLY MOANING. THIS RN THEN CALLED AND SPOKE TO DR. ALVARADO TO UPDATE HER ON PT'S MAINTAINED HR BETWEEN 110-120, INCREASED MOTTLING IN ALL EXTREMITIES, NEUROLOGICALLY OBTUNDED, AND URINE OUTPUT CONTINUES TO REMAIN LOW AT 10 CC OR 15 CC/HR.
--- NOTE | 2018-06-29 18:00 | NUR ---
OBTUNDED. EYES CLOSED. SOFTLY MOANING. HR 111. SPO2 92%. RR 26
--- NOTE | 2018-06-29 18:20 | NUR ---
ORAL SUCTION AT THIS TIME DUE TO DROP TO 80'S IN O2 SATURATION- RETURNED TO 93% IMMEDIATELY AFTER. PT REMAINS OBTUNDED. PT TURNED TO HER RIGHT SIDE WITH PILLOW SUPPORT. CALL LIGHT WITHIN REACH. WILL CONTINUE TO CLOSELY MONITOR.
--- NOTE | 2018-06-29 19:30 | NUR ---
SHIFT REPORT RECEIVED FROM PATRICK PRADO. PT'S SON ANTONY IN ROOM AT THIS TIME AND UPDATED ON PT'S CONDITION. PT IS CURRENTLY OBTUNDED. 2L O2 VIA NC IN PLACE. SAM PATENT, LOW UO. ANTONY LEFT HIS PHONE NUMBER AND ASKS TO BE CALLED FOR ANY CHANGES IN PT'S CONDITION. PT WITHIN VIEW OF NURSES' STATION.
--- NOTE | 2018-06-29 20:00 | NUR ---
ASSESSMENT COMPLETED. PT IS OBTUNDED, DOES NOT CURRENTLY APPEAR TO BE IN PAIN. RESPIRATIONS APPEAR SOMEWHAT LABORED, ACCESSORY MUSCLE USE NOTED, LUNGS SOUND COARSE AND DIMINISHED, 2L O2 VIA NC IN PLACE. HR REGULAR, TACHY HR:110. BOWEL TONES HYPOACTIVE. SKIN IS FRAGILE, EXTREMITIES COOL, PROLONGED CAP REFILL. PETECHIA AND SCATTERED BRUISES NOTED ACROSS BODY, ALLEVYN DRESSINGS TO COCCYX AND SPINE. VARGAS PATENT, LOW UO. IV SITES PATENT, IVF INFUSING WNL. CATH CARE COMPLETED. WILL CONTINUE TO MONITOR.
--- NOTE | 2018-06-29 20:30 | NUR ---
DR. ALVARADO IN UNIT AT THIS TIME. INFORMED HER OF PT'S TEMP OF 100.4 AND THAT PT IS NOT CURRENTLY ALERT ENOUGH TO TAKE ORAL MEDICATION, ORDER RECEIVED FOR PRN TYLENOL SUPPOSITORIES. ALSO INFORMED HER THAT PT'S UO WAS 15ML, ORDER ALSO RECEIVED FOR A UA/CULTURE. ASKED ABOUT POSSIBLE MEDICATION FOR ORAL SECRETIONS, WILL HOLD OFF AT THIS TIME AND CONTINUE TO PROVIDE PRN SUCTIONING.
--- NOTE | 2018-06-29 20:50 | NUR ---
TYLENOL SUPPOSITORY ADMINISTERED AT THIS TIME. PT REPOSITIONED ONTO RIGHT SIDE WITH PILLOW SUPPORT. ALLEVYN DRESSINGS TO COCCYX AND SPINE INTACT, NO DRAINAGE NOTED. REDNESS NOTED TO BUTTOCKS, BLANCHABLE. ORAL SUCTIONING PROVIDED.
--- NOTE | 2018-06-29 22:55 | NUR ---
PT REPOSITIONED WITH HIPS FLOATED ON PILLOW AT THIS TIME. PT GRIMMACES WITH MOVEMENT, BUT QUICKLY RELAXES. RECHECKED TEMP: 99.5 AXILLARY. WILL CONTINUE TO MONITOR.
--- NOTE | 2018-06-30 00:23 | NUR ---
ASSESSMENT COMPLETED, PT NO LONGER FEELS COOL TO THE TOUCH, SKIN IS WARM AND DRY. TEMP: 98.0 AXILLARY. BREATHING REMAINS LABORED, THOUGH NO LONGER TACHYPNIC, RATE:18 AT THIS TIME, SPO2:99% ON 2L. HR REGLUAR, NO LONGER TACHY, RATE:82 AT THIS TIME. VARGAS CONTINUES TO DRAIN FREELY, UO REMAINS LOW. IVF INFUSING WNL, IV SITES AND DRESSINGS INTACT. PT APPEARS COMFORTABLE AT THIS TIME, WILL CONTINUE TO MONITOR.
--- NOTE | 2018-06-30 01:04 | NUR ---
PT REPOSITIONED ONTO LEFT SIDE WITH PILLOW SUPPORT. PT APPEARS COMFORTABLE. RR:20, SPO2:100% ON 2L, HR:88. WILL CONTINUE TO MONITOR.
--- NOTE | 2018-06-30 04:22 | NUR ---
PT REPOSITIONED ONTO BACK WITH ARM ELEVATED ON PILLOWS. PT'S EYES NOW OPEN, THOUGH SHE DOES NOT MAKE EYE CONTACT AND REMAINS NONVEBAL. LUNGS REMAIN COARSE AND DIM, WEAK MOIST COUGH PRESENT, ORAL CARE AND SUCTIONING PROVIDED. HR REGULAR, HR:90'S. SKIN IS WARM TO TOUCH AND PROLONGED CAP REFILL APPEARS TO BE IMPROVING, CURRENTLY ABOUT 4-5 SECONDS. TREMORS PRESENT IN BUE. IV SITES PATENT, IVF INFUSING WNL. VARGAS PATENT, UO INCREASING. AFEBRILE AT THIS TIME. TACHYPNIC RR:30'S. HEEL PROTECTORS REMAIN IN PLACE. WILL CONTINUE TO MONITOR.
--- NOTE | 2018-06-30 04:43 | NUR ---
PT'S SATS WERE 88% AND RR INCREASED TO 38, ORAL SUCTIONING PROVIDED AND THICK CLEAR SPUTUM NOTED. RR NOW 28 AND SPO2 NOW 92%. WILL CONTINUE TO MONITOR.
--- NOTE | 2018-06-30 06:00 | NUR ---
PT APPEARS UNCOMFORTABLE AND IS TACHYPNIC, RR:30'S, SPO2 DECREASED TO 87%. SWITCHED OXYGEN TO OXYMASK AND TITRATED O2 UP TO 4L. AXILLARY TEMP 99.4 AT THIS TIME, TYLENOL SUPPOSITORY ADMINISTERED. SMALL BROWN STOOL NOTED, SEBASTIAN-CARE, NEW CHUX, AND ATTENDS PROVIDED. REPOSITIONED IN BED SO THAT BILATERAL HIPS ARE FLOATED ON PILLOWS. URINE OUTPUT IS ONCE AGAIN LOW, 14ML FOR THE LAST HOUR. WILL CONTINUE TO MONITOR.
--- NOTE | 2018-06-30 08:25 | NUR ---
RT HAS JUST FINISHED DRAWING ABG FROM PT. ASSESSMENT COMPLETED AT THIS TIME. PT NO LONGER HAS HER EYES OPEN. EYES CLOSED, PT NOT RESPONSIVE/ PT IS OBTUNDED. O2 SATS ADEQUATE ON NC. LUNGS ARE DIM/COURSE. PT'S SKIN IS WARM AND PT HAS LOW GRADE TEMP OF 99.4 AXILLARY. VARGAS REMAINS IN PLACE; OLIGURIA CONTINUES. THIS RN HAS ALREADY SPOKEN WITH DR. SUMMERS WHO WAS AT THE BEDSIDE WITHIN THIS LAST HOUR- UPDATED HER ON OLIGURIA CONTINUING. ALLEYVNS REMAIN IN PLACE ON HER BACKSIDE. Q2HR TURNS CONTINUING FOR SKIN PROTECTION. HEEL PROTECTORS IN PLACE WELL ALL EXTREMITIES ELEVATED ON PILLOWS. ALL FALL AND ASPIRATION PRECAUTIONS IN PLACE. SUCTION SET UP. PT IS VISIBLE FROM NURSES STATION. CALL LIGHT WITHIN REACH. WILL CONTINUE TO MONITOR.
--- NOTE | 2018-06-30 09:00 | NUR ---
DR. ALVARADO AND RT AT BEDSIDE AFTER ABG RESULTS- RT PLACING BIPAP ON PT AT THIS TIME.
--- NOTE | 2018-06-30 10:30 | NUR ---
ENTERED ROOM AT THIS TIME TO SEE THAT PT HAS HER EYES OPEN. SHE REMAINS ON BIPAP. I TRIED CONVERSING WITH PT BUT SHE IS NONVERBAL. I EXPLAINED THE SITUATION AND UPDATED HER ON HER CONDITION BUT SLADE IF SHE'S GRASPING INFORMATION. I ASKED HER IF SHE WAS ABLE TO NOD HER HEAD YES OR NO OR SQUEEZE MY HAND BUT PT DID NOTHING- CONTINUED TO STARE BLANKLY. PT REPOSITIONED. RR 26 ON BIPAP SETTINGS 03/10. PT VISIBLE FROM NURSES STATION. WILL CONTINUE TO MONITOR.
--- NOTE | 2018-06-30 12:00 | NUR ---
PT'S [id number] JUST ARRIVED TO VISIT AT THE BEDSIDE- LISHA. LISHA STATES SHE'S VERY CLOSE WITH THE PT AND VISITS HER WEEKLY AT [facility]. PT IS OKAY TO GET UPDATES ON PT WHEN SHE CALLS. REASSESSMENT THEN COMPLETED AT THIS TIME. NO CHANGES TO ASSESSMENT OTHER THAN PT BEING ON BIPAP INSTEAD OF NC. SEE CHARTED ASSESSMENT. PT REPOSITIONED WITH PILLOW SUPPORT AND SUPPOSITORY GIVEN FOR LOW GRADE TEMP. ALL EXTREMITIES ELEVATED. HEEL PROTECTORS IN PLACE. BIPAP SETTINGS 12/5 WITH 30% O2. PT CONTINUES TO OPEN HER EYES SPONTANEOUSLY BUT STILL IS NOT RESPONDING TO COMMANDS. FALL AND ASPIRATION PRECAUTIONS IN PLACE, WILL CONTINUE TO MONITOR.
--- NOTE | 2018-06-30 13:38 | NUR ---
PT CARE ASSUMED. PT RESTING IN BED. PT DOES NOT RESPOND WHEN SPOKEN TO, DOES NOT OPEN HER EYES WHEN ASKED. REPOSITIONED IN THE BED. PT REMAINS ON BIPAP AT THIS TIME.
--- NOTE | 2018-06-30 14:39 | NUR ---
PT REPOSITIONED IN BED. PT CONTINUES NOT TO RESPOND TO VOICE OR TOUCH. BIPAP IN PLACE.
--- NOTE | 2018-06-30 16:05 | NUR ---
PT REPOSITIONED IN BED. FAMILY IN ROOM TO VISIT. PTS FAMILY REPORTS THAT SHE OPENED HER EYES AND APPEARED TO KNOW THEY WERE IN THE ROOM. PT DOES NOT FOCUS ON NURSE IN ROOM HOWEVER.
--- NOTE | 2018-06-30 16:47 | NUR ---
PTS BIPAP RELEASED TO ASSESS SKIN UNDERNEATH. PTS NOSE RED AND CLAMMY. RT CALLED TO ASSESS HOW TO ASSIST WITH THIS
--- NOTE | 2018-06-30 16:49 | NUR ---
PT BACK ON OXYMASK FOR NOW
--- NOTE | 2018-06-30 17:03 | NUR ---
PT ABLE TO MAINTAIN O2 SATS ON 6L/NC FOR NOW.
--- NOTE | 2018-06-30 17:09 | NUR ---
PT ABLE TO START TO SPEAK, DIFFICULT TO UNDERSTAND. COARSE COUGH, PT UNABLE TO BRING UP ANYTHING. ABLE TO TRACK WITH EYES.
--- NOTE | 2018-06-30 17:17 | NUR ---
DR ALVARADO IN ROOM, PT APPEARS TO BE BACK TO BASELINE HEART RATE AND BLOOD PRESSURE.
--- NOTE | 2018-06-30 17:28 | NUR ---
1714- PTS O2 SATS BEGINNING TO DROP. IN TO PLACE PT BACK ON BIPAP. OXIMASK PLACED WHILE BIPAP SET UP AT AN ADDITIONAL 6L. PTS O2 SATS IN THE 60S. PT PLACED ON BIPAP AND TURNED UP TO 100% FIO2. PTS BECAME APNIC AND HEART RATE DOWN TO 40S. PT CYANOTIC IN FACE AND LIPS. AFTER ABOUT 2 MIN ON BIPAP, PTS HEART RATE BEGAN TO RECOVER. AND PT BEGAN TO BREATHE AGAIN AT 30 PER MIN.
--- NOTE | 2018-06-30 17:45 | NUR ---
XR IN ROOM TO TAKE CHEST XRAY. WHEN PT SITTING UP STRAIGHT BEGINS TO DECOMPENSATE AGAIN WITH O2 SATS IN THE 70S. RT IN ROOM. PT BACK TO 100 FIO2 TO RECOVER. WHEN PT ABLE TO MAINTAIN SATS AT 90% TURNED DOWN TO 70% FIO2
--- NOTE | 2018-06-30 17:55 | NUR ---
PTS FAMILY BACK IN ROOM. FAMILY REPORTS THEY WANT TO STAY WITH CURRENT TREATMENT. NO CHANGES AT THIS TIME. HOWEVER, THEY DO REITERATE THAT THEY DO NOT WANT ANY FURTHER RESUCITATION MEASURES.
--- NOTE | 2018-06-30 18:18 | NUR ---
PT TURNED TO LEFT SIDE. UPON AUSCULTATION, APPEARS TO HAVE BETTER AIR MOVEMENT IN RIGHT SIDE THAN PREVIOUSLY. VERY DIM WITH LITTLE MOVEMENT IN LEFT.
--- NOTE | 2018-06-30 19:24 | NUR ---
REPORT TO [employer]OT[employer] MANAGER RNS
--- NOTE | 2018-06-30 20:00 | NUR ---
RECEIVED REPORT AT 1900, FOUND PT IN BED NOT RESPONSIVE. PT WAS TAKING VERY SHALLOW BREATHS. WILL CONTINUE TO MONITOR.
--- NOTE | 2018-06-30 20:30 | NUR ---
PT IS NOT RESPONSIVE TO VOICE OR TOUCH. RESPIRATIONS ARE VERY SHALLOW AND GRUNTING IS HEARED. PT IS WARM TO TOUCH. WILL CONTINUE TO MONITOR.
--- NOTE | 2018-06-30 21:11 | NUR ---
AT 2107 PT STARTED HAVING INCRESE IN RR FROM UPPER 30'S TO MID 40'S. RT WAS CALLED AND PT WAS PUT ON 100% O2. HR IS STILL UP IN THE 120'S. WILL CONTINUE TO MONITOR.
--- NOTE | 2018-06-30 21:30 | NUR ---
SON ROBYN WAS CALLED WITH THE CHANGE IN V/S. HE STATED HE WOULD BE ON HIS WAY.
--- NOTE | 2018-06-30 23:16 | NUR ---
PT WENT INTO RESPIRATORY DISTRESS AGAIN. ANOTHER 2MG OF MORPHINE IV GIVEN. FAMILY IS AT BEDSIDE NOW. WILL CONTINUE TO MONITOR.
--- NOTE | 2018-06-30 23:38 | NUR ---
AT AROUND 2330 MD ALVARADO WAS CALLED TO INFORM HER THAT FAMILY OF PT HAS DECIDED TO TAKE PT OFF BI-PAP. MD ALVARADO IS ON HER WAY TO TALK TO FAMILY.
--- NOTE | 2018-06-30 23:46 | NUR ---
RT WAS CALLED TO D/C BI-PAP.
--- NOTE | 2018-07-01 00:05 | NUR ---
BI-PAP WAS STOPPED. PT NOW ON 3L O2 VIA OXY MASK FOR COMFORT. 4MG IV MORPHINE GIVEN.
--- NOTE | 2018-07-01 00:44 | NUR ---
PT AT THIS POINT APPEARS TO HAVE AGONAL BREATHING PRESENT. MONITORS HAVE BEEN TURNED OFF IN ROOM. FAMILY IS STILL AT BEDSIDE.
--- NOTE | 2018-07-01 00:53 | NUR ---
APICAL PULSE NO LONGER AUSCULTATED. MD ALVARADO WAS CALLED.
--- NOTE | 2018-07-01 02:23 | NUR ---
I WAS CALLED IN AT THE OF THIS PT. HER FAMILY HAD ALREADY LEFT. I CALLED HOME - [facility]. WAITED FOR TRANSPORT VAN. COVERED BODY WITH PASSAGE [employer]ILT AND ESCORTED TO TRANSPORT [facility]AN.
== END 2018-07-01 00:50 | DRG 871 ==
LOC: ED 17:59 → MS 21:43 → CCU 06-29 11:50
PROVIDERS: ADMIT Internal Medicine
DX: A41.9 Sepsis, unspecified organism (principal); J13 Pneumonia due to Streptococcus pneumoniae; J96.01 Acute respiratory failure with hypoxia; J69.0 Pneumonitis due to inhalation of food and vomit; K44.9 Diaphragmatic hernia without obstruction or gangrene; R13.12 Dysphagia, oropharyngeal phase; Z66 Do not resuscitate; F03.90 Unspecified dementia, unspecified severity, without behavioral disturbance, psychotic disturbance, mood disturbance, and anxiety; H91.90 Unspecified hearing loss, unspecified ear; R13.10 Dysphagia, unspecified; I10 Essential (primary) hypertension; K21.9 Gastro-esophageal reflux disease without esophagitis; D57.1 Sickle-cell disease without crisis
CPT/HCPCS: 36415; 36600; 71045; 74177; 80053; 80202; 81001; 82803; 83605; 85025; 85610; 85730; 87040; 87070; 87205; 87502; 92610; 93005; 93010; 94640; 94660; 94668; 94762; 96361; 96365; 96367; 97110; 97116; 97163; 97530; 99285-25; J0456; J0696; J1650; J2060; J2185; J2270; J2405; J3370; J3480; J7030; J7120; Q9967